=== PATIENT | female | born 1935 | race Caucasian/White ===

== ENCOUNTER 2022-04-27 12:46 | Outpatient (RCR) | payer MEDICARE, BC, SELFPAY ==
[2022-04-27 14:22] LABS: Lactate Dehydrogenase* 666 U/L (313-618)
[2022-04-27 14:42] LABS: Basophils Percent Auto 0.2 % (0.0-3.0); Eosinophils Percent Auto 0.4 % (0.0-7.0); Hematocrit 33.1 % (33.0-51.0); Hemoglobin* 11.3 gm/dL (12.0-16.0); Immature Granulocytes Abs Auto 0.01 K/uL (0.00-0.30); Lymphocytes Percent Auto 68.9 % (20-44); Mean Corpuscular HGB Conc 34 gm/dL (32-36); Mean Corpuscular Hemoglobin 34 pg (26-34); Mean Corpuscular Volume 99 fL (80-100); Monocytes Percent Auto 17.3 % (0.0-11.0); Neutrophils Percent Auto 13.1 % (42.0-72.0); Platelet Count* 182 K/uL (140-440); RDW Coefficient of Variation % 13.1 % (11.5-15.5); Red Blood Count 3.33 m/uL (4.00-5.20); White Blood Count* 11.03 K/uL (4.50-11.00)
[2022-04-27 14:43] LABS: Albumin* 4.3 g/dL (3.3-5.0); Chloride* 91 mmol/L (96-114)
[2022-04-27 14:44] LABS: Potassium* 4.4 mmol/L (3.6-5.1)
[2022-04-27 14:46] LABS: Alanine Aminotransferase* 24 U/L (4-35); Alkaline Phosphatase* 97 U/L (40-150); Aspartate Amino Transferase* 70 U/L (12-35); Bilirubin Total* 0.4 mg/dL (0.1-1.5); Blood Urea Nitrogen* 18 mg/dL (7-30); Carbon Dioxide* 27 mmol/L (20-32); Creatinine* 0.9 mg/dL (0.5-1.5); Estimated Glomerular Filt Rate 62 ml/min; Glucose* 103 mg/dL (60-115); Sodium* 125 mmol/L (135-149); Total Protein* 7.3 g/dL (6.0-8.3)
[2022-04-27 14:47] LABS: Calcium* 9.1 mg/dL (8.4-10.6)
[2022-04-27 15:01] LABS: Slide Review Reflex Yes
[2022-04-27 15:02] LABS: Slide Review Acceptable Review (Acceptable)
[2022-04-27 15:27] LABS: Hepatitis B Surface Antigen* Negative (Negative)
--- NOTE | 2022-04-28 09:06 | URNOTE ---
Request received for prior authorization of Rituximab [id number]. Patient carries Medicare as primary insurance. Per CMS.gov LCD A35998 no prior authorization is required for Rituximab. Services are based on medical necessity and follows Medicare guidelines.
[2022-04-28 17:03] LABS: Hepatitis B Core Antibodies Negative (Negative)
[2022-05-01 13:28] LABS: Hepatitis B Surface Antibody* Negative (Negative)
== END 2022-04-30 23:59 | disposition home or self-care (01) ==
LOC: CCIC 12:46
PROVIDERS: PCP Internal Medicine; Visit Provider Internal Medicine Hematology & Oncology
DX: C83.08 Small cell B-cell lymphoma, lymph nodes of multiple sites (principal)
CPT/HCPCS: 36415; 80053; 83615; 85025; 86704; 86706; 87340; 99202; 99204

== ENCOUNTER 2022-10-26 12:45 | Outpatient (RCR) | payer MEDICARE, BC, SELFPAY ==
[2022-05-02 08:34] VITALS: BP 159/72; PULSE 69; RESP 16; TEMP 36.4; O2SAT 95
[2022-05-02] MEDS: ACETAMINOPHEN 325 MG TABLET 650 MG PO ×2 (09:28→12:32)
[2022-05-02] MEDS: diphenhydrAMINE 25 MG in 0.9 % SODIUM CHLORIDE 100 ml 100 ML 402 MG IVPB (09:50)
[2022-05-02 09:54] LABS: Chloride* 97 mmol/L (96-114); Potassium* 4.7 mmol/L (3.6-5.1); Sodium* 127 mmol/L (135-149)
[2022-05-02 09:56] LABS: Creatinine* 0.8 mg/dL (0.5-1.5); Estimated Glomerular Filt Rate 72 ml/min
[2022-05-02 09:57] LABS: Blood Urea Nitrogen* 20 mg/dL (7-30); Calcium* 9.1 mg/dL (8.4-10.6); Carbon Dioxide* 24 mmol/L (20-32); Glucose* 95 mg/dL (60-115)
[2022-05-02] MEDS: diphenhydrAMINE 50 MG/ML inj 25 MG IVP (12:33)
--- NOTE | 2022-05-02 14:47 | ONC.NURNOTE ---
See Mar/titration on infusional reaction. Rituxan stopped due to hypertension, chills, and low back pain. Pt received additional benadryl and tylenol per order from Nat Castellanos APRN and rituxan resumed at 75cc/hr 20 minutes after pre meds. Labs on 04/27- Sodium 125. BMP ordered by Nat Castellanos APRN, sodium level 127. Lab results faxed to Dr. Barreto as an FYI and message left to see if pt's BP meds could be the cause of her low sodium.
[2022-05-02] MEDS: HYDROCORTISONE SOD SUCCINATE 50 MG/ML inj 100 MG IVP (15:15)
--- NOTE | 2022-05-02 15:27 | ONC.NURNOTE ---
Tootie reviewed questions addressed consents signed reviewed contents of the new chemo treatment binder after hours management discussed, including management of fever over 100.5
--- NOTE | 2022-05-02 15:53 | ONC.NURNOTE ---
Addendum entered by Zaida Vargas RN 05/02/22 17:09: Pt discharged at 1700 alert and ambulatory with daughter. Pt to hold Metoprolol this evening. RN to call pt tomorrow to check in. Original Note: At 1512, pt turned light on stating she felt hot, clammy, slightly nauseated. Rituxan stopped, NS started, BP 70's systollic. Nat Watson APRN at bedside. Pt reclined. NS bolus started and Solucortef 100mg IV given per order from Nat Watson APRN. BP improving, see titration/VS. at 1527, BP 112/49 HR 63. RN at bedside with VS frequently. RN called pt's daughter to come sit with pt at her request.
[2022-05-02] MEDS: FAMOTIDINE 10 MG/ML inj 20 MG IVP (16:35)
--- NOTE | 2022-05-03 15:13 | ONC.NURNOTE ---
Post Rituxan follow up call Noelle phoned in today to report that she has been feeling well since receiving her rituxan yesterday she left here and took a short nap at home then slept well last night with no fevers continues to be Afeb today reports feeling perky and was heading to lunch this afternoon encouraged to call with any changes or concerns
[2022-05-11 08:08] VITALS: BP 160/70; PULSE 82; RESP 16; TEMP 36.6; O2SAT 98
[2022-05-11 08:43] LABS: Basophils Absolute Auto 0.01 K/uL (0.00-0.30); Basophils Percent Auto 0.2 % (0.0-3.0); Eosinophils Absolute Auto 0.05 K/uL (0.00-0.50); Eosinophils Percent Auto 0.8 % (0.0-7.0); Hematocrit 32.5 % (33.0-51.0); Hemoglobin* 11.2 gm/dL (12.0-16.0); Lymphocytes Percent Auto 56.2 % (20-44); Mean Corpuscular HGB Conc 35 gm/dL (32-36); Mean Corpuscular Hemoglobin 34 pg (26-34); Mean Corpuscular Volume 99 fL (80-100); Monocytes Percent Auto 19.4 % (0.0-11.0); Neutrophils Percent Auto 23.4 % (42.0-72.0); Platelet Count* 180 K/uL (140-440); RDW Coefficient of Variation % 13.4 % (11.5-15.5); White Blood Count* 5.93 K/uL (4.50-11.00)
[2022-05-11 08:45] LABS: Albumin* 4.4 g/dL (3.3-5.0); Chloride* 92 mmol/L (96-114)
[2022-05-11 08:46] LABS: Potassium* 4.4 mmol/L (3.6-5.1)
[2022-05-11 08:48] LABS: Bilirubin Total* 0.5 mg/dL (0.1-1.5); Creatinine* 0.8 mg/dL (0.5-1.5); Estimated Glomerular Filt Rate 72 ml/min; Sodium* 125 mmol/L (135-149)
[2022-05-11 08:49] LABS: Alanine Aminotransferase* 28 U/L (4-35); Alkaline Phosphatase* 101 U/L (40-150); Aspartate Amino Transferase* 28 U/L (12-35); Blood Urea Nitrogen* 21 mg/dL (7-30); Carbon Dioxide* 23 mmol/L (20-32); Glucose* 142 mg/dL (60-115); Total Protein* 7.1 g/dL (6.0-8.3)
[2022-05-11 09:04] LABS: Slide Review Reflex No
[2022-05-11] MEDS: ACETAMINOPHEN 325 MG TABLET 650 MG PO (09:36)
[2022-05-11 09:39] LABS: Lactate Dehydrogenase* 785 U/L (313-618)
[2022-05-11] MEDS: METHYLPREDNISOLONE SOD SUCC 40 MG/ML IVP (09:51)
[2022-05-11] MEDS: FAMOTIDINE 10 MG/ML inj 20 MG IVP (09:51)
[2022-05-11] MEDS: diphenhydrAMINE 25 MG in 0.9 % SODIUM CHLORIDE 100 ml 100 ML 402 MG IVPB (10:07)
[2022-05-18 08:24] LABS: Basophils Percent Auto 0.3 % (0.0-3.0); Eosinophils Percent Auto 1.3 % (0.0-7.0); Hematocrit 33.6 % (33.0-51.0); Hemoglobin* 11.6 gm/dL (12.0-16.0); Lymphocytes Percent Auto 47.9 % (20-44); Mean Corpuscular HGB Conc 35 gm/dL (32-36); Mean Corpuscular Hemoglobin 34 pg (26-34); Mean Corpuscular Volume 98 fL (80-100); Monocytes Percent Auto 17.5 % (0.0-11.0); Platelet Count* 189 K/uL (140-440); RDW Coefficient of Variation % 13.4 % (11.5-15.5); Red Blood Count 3.44 m/uL (4.00-5.20); White Blood Count* 3.15 K/uL (4.50-11.00)
[2022-05-18 08:26] LABS: Slide Review Reflex No
[2022-05-18 08:34] VITALS: BP 144/73; PULSE 82; RESP 16; TEMP 37.1; O2SAT 96
[2022-05-18 08:41] LABS: Chloride* 91 mmol/L (96-114)
[2022-05-18 08:42] LABS: Albumin* 4.3 g/dL (3.3-5.0); Potassium* 4.1 mmol/L (3.6-5.1); Sodium* 125 mmol/L (135-149)
[2022-05-18 08:44] LABS: Aspartate Amino Transferase* 36 U/L (12-35); Bilirubin Total* 0.5 mg/dL (0.1-1.5); Carbon Dioxide* 23 mmol/L (20-32); Creatinine* 0.9 mg/dL (0.5-1.5); Estimated Glomerular Filt Rate 62 ml/min; Total Protein* 7.2 g/dL (6.0-8.3)
[2022-05-18 08:45] LABS: Alanine Aminotransferase* 33 U/L (4-35); Alkaline Phosphatase* 110 U/L (40-150); Blood Urea Nitrogen* 21 mg/dL (7-30); Glucose* 176 mg/dL (60-115)
[2022-05-18] MEDS: ACETAMINOPHEN 325 MG TABLET 650 MG PO (09:07)
[2022-05-18] MEDS: METHYLPREDNISOLONE SOD SUCC 40 MG/ML 20 MG IVP (09:18)
[2022-05-18] MEDS: FAMOTIDINE 10 MG/ML inj 20 MG IVP (09:19)
[2022-05-18] MEDS: diphenhydrAMINE 25 MG in 0.9 % SODIUM CHLORIDE 100 ml 100 ML 402 MG IVPB (09:28)
[2022-05-22 13:04] VITALS: BP 148/79; PULSE 88; RESP 16; TEMP 36.4; O2SAT 96
[2022-05-25 08:13] VITALS: BP 149/75; PULSE 77; RESP 16; TEMP 36.4; O2SAT 96
[2022-05-25 08:14] LABS: Basophils Percent Auto 0.3 % (0.0-3.0); Hematocrit 33.5 % (33.0-51.0); Hemoglobin* 11.4 gm/dL (12.0-16.0); Immature Granulocytes Abs Auto 0.02 K/uL (0.00-0.30); Lymphocytes Percent Auto 42.8 % (20-44); Mean Corpuscular HGB Conc 34 gm/dL (32-36); Mean Corpuscular Hemoglobin 34 pg (26-34); Mean Corpuscular Volume 99 fL (80-100); Monocytes Percent Auto 10.8 % (0.0-11.0); Neutrophils Percent Auto 43.4 % (42.0-72.0); Platelet Count* 177 K/uL (140-440); RDW Coefficient of Variation % 13.5 % (11.5-15.5); Red Blood Count 3.37 m/uL (4.00-5.20); White Blood Count* 2.97 K/uL (4.50-11.00)
[2022-05-25 08:23] LABS: Slide Review Reflex No
[2022-05-25 08:25] LABS: Albumin* 4.3 g/dL (3.3-5.0); Chloride* 93 mmol/L (96-114)
[2022-05-25 08:26] LABS: Potassium* 4.5 mmol/L (3.6-5.1); Sodium* 127 mmol/L (135-149)
[2022-05-25 08:28] LABS: Alkaline Phosphatase* 108 U/L (40-150); Aspartate Amino Transferase* 29 U/L (12-35); Bilirubin Total* 0.6 mg/dL (0.1-1.5); Blood Urea Nitrogen* 19 mg/dL (7-30); Carbon Dioxide* 24 mmol/L (20-32); Creatinine* 0.9 mg/dL (0.5-1.5); Estimated Glomerular Filt Rate 62 ml/min; Glucose* 137 mg/dL (60-115); Total Protein* 7.1 g/dL (6.0-8.3)
[2022-05-25 08:29] LABS: Alanine Aminotransferase* 25 U/L (4-35); Calcium* 9.2 mg/dL (8.4-10.6)
[2022-05-25] MEDS: ACETAMINOPHEN 325 MG TABLET 650 MG PO (08:57)
[2022-05-25] MEDS: diphenhydrAMINE 25 MG, FAMOTIDINE 20 MG in 0.9 % SODIUM CHLORIDE 100 ml 100 ML 410 MG IVPB (09:19)
[2022-05-25] MEDS: METHYLPREDNISOLONE SOD SUCC 40 MG/ML 10 MG IVP (09:37)
[2022-06-01 08:38] LABS: Basophils Percent Auto 0.4 % (0.0-3.0); Eosinophils Percent Auto 1.6 % (0.0-7.0); Hematocrit 33.7 % (33.0-51.0); Hemoglobin* 11.5 gm/dL (12.0-16.0); Immature Granulocytes Abs Auto 0.01 K/uL (0.00-0.30); Lymphocytes Percent Auto 47.2 % (20-44); Mean Corpuscular HGB Conc 34 gm/dL (32-36); Mean Corpuscular Hemoglobin 34 pg (26-34); Mean Corpuscular Volume 99 fL (80-100); Monocytes Percent Auto 4.4 % (0.0-11.0); Platelet Count* 184 K/uL (140-440); RDW Coefficient of Variation % 13.2 % (11.5-15.5); Red Blood Count 3.41 m/uL (4.00-5.20); White Blood Count* 2.52 K/uL (4.50-11.00)
[2022-06-01 08:46] LABS: Albumin* 4.5 g/dL (3.3-5.0); Chloride* 91 mmol/L (96-114); Sodium* 125 mmol/L (135-149)
[2022-06-01 08:47] LABS: Potassium* 4.7 mmol/L (3.6-5.1); Slide Review Reflex No
[2022-06-01 08:49] LABS: Alanine Aminotransferase* 24 U/L (4-35); Alkaline Phosphatase* 107 U/L (40-150); Aspartate Amino Transferase* 31 U/L (12-35); Bilirubin Total* 0.6 mg/dL (0.1-1.5); Blood Urea Nitrogen* 19 mg/dL (7-30); Carbon Dioxide* 25 mmol/L (20-32); Creatinine* 0.8 mg/dL (0.5-1.5); Estimated Glomerular Filt Rate 72 ml/min; Glucose* 99 mg/dL (60-115); Lactate Dehydrogenase* 528 U/L (313-618); Total Protein* 7.3 g/dL (6.0-8.3)
[2022-06-01 08:50] LABS: Calcium* 9.3 mg/dL (8.4-10.6)
[2022-07-14 09:18] LABS: Basophils Absolute Auto 0.01 K/uL (0.00-0.30); Basophils Percent Auto 0.1 % (0.0-3.0); Eosinophils Absolute Auto 0.08 K/uL (0.00-0.50); Eosinophils Percent Auto 1.1 % (0.0-7.0); Hematocrit 35.6 % (33.0-51.0); Hemoglobin* 12.1 gm/dL (12.0-16.0); Lymphocytes Percent Auto 51.6 % (20-44); Mean Corpuscular HGB Conc 34 gm/dL (32-36); Mean Corpuscular Hemoglobin 34 pg (26-34); Mean Corpuscular Volume 101 fL (80-100); Monocytes Percent Auto 25.5 % (0.0-11.0); Neutrophils Percent Auto 21.7 % (42.0-72.0); Platelet Count* 192 K/uL (140-440); Red Blood Count 3.54 m/uL (4.00-5.20); White Blood Count* 6.99 K/uL (4.50-11.00)
[2022-07-14 09:25] LABS: Slide Review Reflex Yes
[2022-07-14 10:10] LABS: Slide Review Acceptable Review (Acceptable)
[2022-09-04 10:26] LABS: Albumin* 4.8 g/dL (3.3-5.0)
[2022-09-04 10:27] LABS: Chloride* 96 mmol/L (96-114); Potassium* 4.8 mmol/L (3.6-5.1); Sodium* 128 mmol/L (135-149)
[2022-09-04 10:29] LABS: Bilirubin Total* 0.7 mg/dL (0.1-1.5); Carbon Dioxide* 24 mmol/L (20-32)
[2022-09-04 10:30] LABS: Alanine Aminotransferase* 27 U/L (4-35); Alkaline Phosphatase* 94 U/L (40-150); Aspartate Amino Transferase* 33 U/L (12-35); Blood Urea Nitrogen* 24 mg/dL (7-30); Calcium* 9.7 mg/dL (8.4-10.6); Glucose* 93 mg/dL (60-115); Total Protein* 7.5 g/dL (6.0-8.3)
[2022-09-04 10:31] LABS: Creatinine* 0.9 mg/dL (0.5-1.5); Estimated Glomerular Filt Rate 62 ml/min
[2022-09-04 10:42] LABS: Basophils Absolute Auto 0.02 K/uL (0.00-0.30); Basophils Percent Auto 0.3 % (0.0-3.0); Eosinophils Absolute Auto 0.03 K/uL (0.00-0.50); Eosinophils Percent Auto 0.5 % (0.0-7.0); Hematocrit 34.9 % (33.0-51.0); Lymphocytes Percent Auto 52.2 % (20-44); Mean Corpuscular HGB Conc 34 gm/dL (32-36); Mean Corpuscular Hemoglobin 33 pg (26-34); Mean Corpuscular Volume 97 fL (80-100); Platelet Count* 190 K/uL (140-440); RDW Coefficient of Variation % 12.9 % (11.5-15.5)
[2022-09-04 10:53] LABS: Slide Review Reflex No
[2022-09-04 12:35] LABS: Lactate Dehydrogenase* 298 U/L (120-246)
== END 2022-10-29 23:59 | disposition home or self-care (01) ==
LOC: CCIC 12:45
PROVIDERS: Clinical Nurse Specialist; Internal Medicine Hematology & Oncology; PCP Internal Medicine; Visit Provider Nurse Practitioner Family
DX: C83.08 Small cell B-cell lymphoma, lymph nodes of multiple sites (principal)
CPT/HCPCS: 36415; 80048; 80053; 83615; 85025; 96361; 96372; 96376; 96413; 96415; 99211; 99212; 99214; 99215; A9270; J1200; J1720; J2920; J7030; J7050; J7120; J9312; S0028

== ENCOUNTER 2022-11-01 00:34 | Outpatient (CLI) | payer MEDICARE, BC, SELFPAY | END 2022-11-01 00:35 | disposition home or self-care (01) | LOC: AMB 23:51 | PROVIDERS: PCP Internal Medicine; Visit Provider Family Medicine | DX: R53.1 Weakness (principal) | CPT/HCPCS: A0425; A0427 ==

== ENCOUNTER 2022-11-01 00:58 | Inpatient (IN) | payer MEDICARE, BC, SELFPAY ==
[2022-11-01] VITALS (16 sets, daily range): BP systolic 141–180; BP diastolic 67–101; PULSE 49–79; RESP 18–20; TEMP 36.2–37; O2SAT 91–98; BMI 22.6; BMI 24.9
--- NOTE | 2022-11-01 01:38 | CRLHL7_ITS ---
For Patients: As a result of the Century Cures Act, medical imaging exams and procedure reports are released immediately into your electronic medical record. You may view this report before your referring provider. If you have questions, please contact your health care provider. INDICATION: Cough and weakness. TECHNIQUE: Chest 1 views. COMPARISON: None. FINDINGS: Cardiovasculature and mediastinum: Heart size and vasculature are normal in caliber and appearance. Lungs and pleural spaces: Lungs are clear. No sign of infiltrate or mass. No sign of pleural effusion. No pneumothorax. Bones and soft tissues: No significant findings. IMPRESSION: No acute or significant findings. Dictated by Dakota Collazo MD @ 11/01/2022 2:15:50 AM (Electronically Signed)
--- NOTE | 2022-11-01 01:45 | ED.GENADULT ---
HPI - General Adult General Chief complaint: Weakness Stated complaint: Weakness Time Seen by Provider: 11/01/22 01:00 Source: patient and EMS History of Present Illness HPI narrative: Patient presents with generalized weakness, worsening over the last 5 days. She reports that her was hospitalized with COVID on Sunday which was 5 days ago. He initially started with weakness symptoms. They live in the independent living area of the [facility]. They do not receive any services. She has been on quarantine for the last 5 days. She has been on Paxlovid, prescribed by her primary care physician. She called EMS tonight because she was afraid she would fall. There was no dizziness, no chest pain, no stumbling. She does have a history of non-Hodgkin's lymphoma and chronic hyponatremia. She reports that she has been eating and drinking normally, had 1 loose stool earlier today but no diarrhea. There is no fever, no dysuria. She has had a mild cough for the last 5 days. Denies nausea. No shortness of breath, no chest pain, no palpitations. She does not give any specific symptoms are reasons as to why she called EMS. She denies any focal neurological changes. She has continued to take her medications without difficulty per her report. Past medical history notable for non-Hodgkin's lymphoma, chronic hyponatremia. Looks like her baseline sodium is around 128. Of note, it looks like she does continue to take hydrochlorothiazide. She has had a remote hysterectomy and foot fracture surgery but no recent procedures. Medications are reviewed and updated, noted in EMR. Allergies none known. Socially she is nonsmoker, , is currently hospitalized. ROS is notable for the nonspecific generalized multi system complaints as above, otherwise denies times 12 systems. Related Data Home Medications Medication Instructions Recorded Confirmed atorvastatin 10 mg tablet 10 mg PO QPM 04/27/22 10/26/22 hydrochlorothiazide 25 mg tablet 25 mg PO QAM 04/27/22 10/26/22 metoprolol succinate 25 mg 25 mg PO QDAY 04/27/22 10/26/22 tablet,extended release 24 hr multivitamin 1 tab PO QAM 04/27/22 10/26/22 vit C 250 mg-vit E 200 unit-zinc See Rx Instructions PO DAILY 04/27/22 10/26/22 ox 12.5 [id number] capsule (ICaps AREDS2) acetaminophen 500 mg tablet See Rx Instructions PO Q6H PRN 09/04/22 10/26/22 (Tylenol Extra Strength) Previous Rx's Medication Instructions Recorded valsartan 160 mg tablet 160 mg PO QDAY #90 tabs 09/28/22 nirmatrelvir 300 mg (150 mg 3 ea PO QAM AND QPM #30 tabs 10/26/22 x2)-ritonavir 100 mg tablet,dose pack(EUA) (Paxlovid) Allergies Allergy/AdvReac Type Severity Reaction Status Date / Time No Known Drug Allergies Allergy Verified 10/26/22 15:44 PFSH PFSH Surgical History History of ankle surgery History of cataract surgery History of hysterectomy History of tonsillectomy Hx of squamous cell carcinoma of skin Social History Smoking Status: Never smoker Exam Const: Vital Signs, click to edit/add: Vital Signs - 24 hr 11/01/22 01:02 11/01/22 02:02 11/01/22 02:13 Temperature 97.2 F L Pulse Rate 49 L Pulse Rate [Pulse Oximeter] 77 Respiratory Rate 20 Blood Pressure 146/78 H Blood Pressure [Le ft Upper Arm] 180/101 H Pulse Oximetry 92 Oxygen Delivery Me thod Room Air 11/01/22 02:30 Temperature Pulse Rate 54 L Pulse Rate [Pulse Oximeter] Respiratory Rate Blood Pressure Blood Pressure [Le ft Upper Arm] Pulse Oximetry 91 Oxygen Delivery Me thod Common normals: no apparent distress and alert General appearance: cooperative, comfortable and well kempt Orientation/consciousness: Yes oriented to person, Yes oriented to place and Yes oriented to time Other: Mild confusion with story telling and specific timeline details but can answer past medical history, but not medications reliably. HENMT: Common normals: normocephalic and head/scalp atraumatic Head and scalp: normocephalic and atraumatic Face and sinus: normal facial exam Mouth: oral and palatal mucosa normal Eye: Common normals: PERRL, EOMs intact bilaterally and conjunctivae normal General eye: normal appearance of both eyes Conjunctiva: conjunctiva(e) normal Pupil: PERRL Neck & C-Spine: Common normals: full ROM, no lymphadenopathy and no JVD Resp: Common normals: normal respiratory effort and no use of accessory muscles Effort & inspection: able to speak in complete sentences Other: Faint bibasilar crackles, symmetric Cardio: Common normals: no JVD, regular rate, regular rhythm and peripheral pulses 2+ throughout Rate: regular rate Rhythm: regular rhythm Peripheral pulses: pulses 2+ throughout Other: 3+ systolic ejection murmur, sounds aortic and chronic GI: Common normals: Normal to inspection, nondistended, normoactive bowel sounds present, soft to palpation, non-tender, no hepatosplenomegaly and no masses Palpation: soft and no hepatosplenomegaly Extremity: Common normals: normal capillary refill and no pedal edema Neuro: Sensorium/orientation: alert, oriented to person, oriented to place and oriented to time Speech: speech normal Motor exam: strength 5/5 throughout and no movement abnormalities noted Psych: Common normals: speech normal Appearance: well kempt Attitude: engaged Speech: normal speech Mood and affect: euthymic mood Skin: Common normals: no rashes or lesions noted General skin exam: no rashes or lesions noted Course Vital Signs Vital signs: Initial Vital Signs Temperature 97.2 F L 11/01/22 01:02 Temperature Source Temporal Artery Scan 11/01/22 01:02 Pulse Rate 77 11/01/22 01:02 Pulse Rhythm 11/01/22 01:02 Pulse Strength 3+ Normal 11/01/22 01:02 Respiratory Rate 20 11/01/22 01:02 Blood Pressure 180/101 H 11/01/22 01:02 Blood Pressure Mean 127 11/01/22 01:02 Blood Pressure Position Semi-Fowlers 11/01/22 01:02 Oxygen Delivery Method 11/01/22 01:02 Vital Signs Temperature 97.2 F L 11/01/22 01:02 Pulse Rate 77 11/01/22 01:02 Respiratory Rate 20 11/01/22 01:02 Blood Pressure 180/101 H 11/01/22 01:02 Oxygen Delivery Method 11/01/22 01:02 Temperature 97.2 F L 11/01/22 01:02 Pulse Rate 54 L 11/01/22 02:30 Respiratory Rate 20 11/01/22 01:02 Blood Pressure 146/78 H 11/01/22 02:02 Pulse Oximetry 91 02/01/23 02:30 Oxygen Delivery Method 11/01/22 01:02 Medical Decision Making MDM Narrative Medical decision making narrative: White differential diagnosis, likely COVID, could be medication side effect. Could be worsening hyponatremia compared to her baseline, other acute illnesses. Unfortunately at her age, some degree of cognitive impairment would be expected. I have not care for her previously to know her baseline. I am certainly not detecting any focal weakness or signs of stroke. I do think the stress of her being hospitalized without her is likely contributing. Chest x-ray, COVID swab, flu swab, basic blood work, cardiac workup an EKG recommended. Awaiting studies. No interventions in the interim. Update: Severe hyponatremia noted. Will begin normal saline 500 mL IV x1 and admit to hospital for management of hyponatremia. Stopping thiazide would be paramount. I do suspect that the new anti COVID medication is likely contributing as well as poor oral intake and stress with her in the hospital. Awaiting call back from hospitalist team Update: Hospitalist has accepted patient for admission. Will transfer to [facility]. Lab Data Lab results reviewed: Yes I reviewed the patient's lab results Lab results narrative: Most notable severe hyponatremia Labs: Lab Results 11/01/22 11/01/22 11/01/22 Range/Units 01:35 01:35 01:55 WBC (4.50-11.00) K/uL RBC (4.00-5.20) m/uL Hgb (12.0-16.0) gm/dL Hct (33.0-51.0) % MCV (80-100) fL MCH (26-34) pg MCHC (32-36) gm/dL RDW Coeff of Ebonie (11.5-15.5) % Plt Count (140-440) K/uL Neut % (Auto) (42.0-72.0) % Lymph % (Auto) (20-44) % Levy % (Auto) (0.0-11.0) % Eos % (Auto) (0.0-7.0) % Baso % (Auto) (0.0-3.0) % Neut # (Auto) (1.7-7.0) K/uL Lymph # (Auto) (0.90-2.90) K/uL Levy # (Auto) (0.00-0.90) K/UL Eos # (Auto) (0.00-0.50) K/uL Baso # (Auto) (0.00-0.30) K/uL Sodium (135-149) mmol/L Potassium (3.6-5.1) mmol/L Chloride (96-114) mmol/L Carbon Dioxide (20-32) mmol/L BUN (7-30) mg/dL Creatinine (0.5-1.5) mg/dL Estimated Creat Clear Estimated GFR ml/min Glucose (60-115) mg/dL Lactate Calcium (8.4-10.6) mg/dL Magnesium (1.5-2.6) mg/dL Total Bilirubin (0.1-1.5) mg/dL AST (12-35) U/L ALT (4-35) U/L Alkaline Phosphatase (40-150) U/L Troponin I (0.01-0.04) ng/mL C-Reactive Protein (0.5-1.0) mg/dL NT-Pro-B Natriuret Pep pg/mL Total Protein (6.0-8.3) g/dL Albumin (3.3-5.0) g/dL Lipase (23-300) U/L Procalcitonin (<0.50) ng/mL Urine Color Yellow (Yellow) Urine Appearance Cloudy A (Clear) Urine pH 7.0 (5.0-8.5) Ur Specific [place] 1.015 (1.000-1.030) Urine Protein Negative (Negative) Urine Glucose (UA) Negative (Negative) Urine Ketones Negative (Negative) Urine Blood 1+ A (Negative) Urine Nitrite Positive A (Negative) Urine Bilirubin Negative (Negative) Urine Urobilinogen 0.2 (0.2-1.0) Ur Leukocyte Esterase Negative (Negative) Urine RBC 0-2 (0-2) Urine WBC 2-5 (0-5) Ur Squamous Epith Cells Few (None-Few) Urine Bacteria Many A (None) SARS-CoV-2 (PCR) POSITIVE SARS-CoV-2 A (Negative) Influenza Type A (PCR) Negative PCR FLU A (Negative) Influenza Type B (PCR) Negative PCR FLU B (Negative) RSV (PCR) Negative PCR RSV (Negative) POC Troponin I 0.01 (0.01-0.04) ng/ml 11/01/22 11/01/22 11/01/22 Range/Units 02:00 02:00 02:00 WBC 11.10 H (4.50-11.00) K/uL RBC 3.26 L (4.00-5.20) m/uL Hgb 11.1 L (12.0-16.0) gm/dL Hct 30.5 L (33.0-51.0) % MCV 94 (80-100) fL MCH 34 (26-34) pg MCHC 36 (32-36) gm/dL RDW Coeff of Ebnoie 13.0 (11.5-15.5) % Plt Count 182 (140-440) K/uL Neut % (Auto) 18.5 L (42.0-72.0) % Lymph % (Auto) 65.7 H (20-44) % Levy % (Auto) 14.9 H (0.0-11.0) % Eos % (Auto) 0.5 (0.0-7.0) % Baso % (Auto) 0.3 (0.0-3.0) % Neut # (Auto) 2.10 (1.7-7.0) K/uL Lymph # (Auto) 7.30 H (0.90-2.90) K/uL Levy # (Auto) 1.70 H (0.00-0.90) K/UL Eos # (Auto) 0.10 (0.00-0.50) K/uL Baso # (Auto) 0.00 (0.00-0.30) K/uL Sodium 112 L* (135-149) mmol/L Potassium 4.4 (3.6-5.1) mmol/L Chloride 83 L (96-114) mmol/L Carbon Dioxide 23 (20-32) mmol/L BUN 16 (7-30) mg/dL Creatinine 0.6 (0.5-1.5) mg/dL Estimated Creat Clear 37.10 Estimated GFR 87 ml/min Glucose 112 (60-115) mg/dL Lactate Cancelled Calcium 8.4 (8.4-10.6) mg/dL Magnesium (1.5-2.6) mg/dL Total Bilirubin 0.7 (0.1-1.5) mg/dL AST 38 H (12-35) U/L ALT 32 (4-35) U/L Alkaline Phosphatase 116 (40-150) U/L Troponin I 0.01 (0.01-0.04) ng/mL C-Reactive Protein 0.7 (0.5-1.0) mg/dL NT-Pro-B Natriuret Pep 3450 pg/mL Total Protein 7.1 (6.0-8.3) g/dL Albumin 4.2 (3.3-5.0) g/dL Lipase 58 (23-300) U/L Procalcitonin 0.06 (<0.50) ng/mL Urine Color (Yellow) Urine Appearance (Clear) Urine pH (5.0-8.5) Ur Specific [place] (1.000-1.030) Urine Protein (Negative) Urine Glucose (UA) (Negative) Urine Ketones (Negative) Urine Blood (Negative) Urine Nitrite (Negative) Urine Bilirubin (Negative) Urine Urobilinogen (0.2-1.0) Ur Leukocyte Esterase (Negative) Urine RBC (0-2) Urine WBC (0-5) Ur Squamous Epith Cells (None-Few) Urine Bacteria (None) SARS-CoV-2 (PCR) (Negative) Influenza Type A (PCR) (Negative) Influenza Type B (PCR) (Negative) RSV (PCR) (Negative) POC Troponin I (0.01-0.04) ng/ml 11/01/22 Range/Units 02:00 WBC (4.50-11.00) K/uL RBC (4.00-5.20) m/uL Hgb (12.0-16.0) gm/dL Hct (33.0-51.0) % MCV (80-100) fL MCH (26-34) pg MCHC (32-36) gm/dL RDW Coeff of Ebonie (11.5-15.5) % Plt Count (140-440) K/uL Neut % (Auto) (42.0-72.0) % Lymph % (Auto) (20-44) % Levy % (Auto) (0.0-11.0) % Eos % (Auto) (0.0-7.0) % Baso % (Auto) (0.0-3.0) % Neut # (Auto) (1.7-7.0) K/uL Lymph # (Auto) (0.90-2.90) K/uL Levy # (Auto) (0.00-0.90) K/UL Eos # (Auto) (0.00-0.50) K/uL Baso # (Auto) (0.00-0.30) K/uL Sodium (135-149) mmol/L Potassium (3.6-5.1) mmol/L Chloride (96-114) mmol/L Carbon Dioxide (20-32) mmol/L BUN (7-30) mg/dL Creatinine (0.5-1.5) mg/dL Estimated Creat Clear Estimated GFR ml/min Glucose (60-115) mg/dL Lactate Calcium (8.4-10.6) mg/dL Magnesium 1.6 (1.5-2.6) mg/dL Total Bilirubin (0.1-1.5) mg/dL AST (12-35) U/L ALT (4-35) U/L Alkaline Phosphatase (40-150) U/L Troponin I (0.01-0.04) ng/mL C-Reactive Protein (0.5-1.0) mg/dL NT-Pro-B Natriuret Pep pg/mL Total Protein (6.0-8.3) g/dL Albumin (3.3-5.0) g/dL Lipase (23-300) U/L Procalcitonin (<0.50) ng/mL Urine Color (Yellow) Urine Appearance (Clear) Urine pH (5.0-8.5) Ur Specific [place] (1.000-1.030) Urine Protein (Negative) Urine Glucose (UA) (Negative) Urine Ketones (Negative) Urine Blood (Negative) Urine Nitrite (Negative) Urine Bilirubin (Negative) Urine Urobilinogen (0.2-1.0) Ur Leukocyte Esterase (Negative) Urine RBC (0-2) Urine WBC (0-5) Ur Squamous Epith Cells (None-Few) Urine Bacteria (None) SARS-CoV-2 (PCR) (Negative) Influenza Type A (PCR) (Negative) Influenza Type B (PCR) (Negative) RSV (PCR) (Negative) POC Troponin I (0.01-0.04) ng/ml ECG Data Attestation: I personally reviewed and interpreted this ECG as follows: Prior ECG tracings: not available for review Interpretation: No prior EKGs noted in system. I was surprised by this especially with her history of hypertension and her report that Dr. Barreto is her primary care provider. Think there may be a registration account issue with this. Nonetheless she is in sinus rhythm on her EKG per my interpretation with several PVCs. No cysts specific ischemic changes but there is a left bundle branch block. Discharge Plan Discharge Clinical Impression: Delirium due to another medical condition, Generalized weakness, Acute hyponatremia Prescriptions: No Action atorvastatin 10 mg tablet 10 mg PO QPM metoprolol succinate 25 mg tablet extended release 24 hr 25 mg PO QDAY multivitamin Tablet 1 tab PO QAM Hold Instructions: taking different supplement ICaps AREDS2 250 mg-200 unit -12.5 mg-1 mg capsule See Rx Instructions PO DAILY Rx Instructions: PO; daily hydrochlorothiazide 25 mg tablet 25 mg PO QAM acetaminophen [Tylenol Extra Strength] 500 mg tablet See Rx Instructions PO Q6H PRN Rx Instructions: 500-1000 orally every 6 hours PRN; Paxlovid (EUA) 300 mg (150 mg x 2)-100 mg tablets,dose pack 3 ea PO QAM AND QPM Qty: 30 0RF valsartan 160 mg tablet 160 mg PO QDAY Qty: 90 3RF Follow Up/Referrals: Gabrielle Barreto MD [Primary Care Provider] -
[2022-11-01 01:48] LABS: Appearance Urine Cloudy (Clear); Bilirubin Urine Negative (Negative); Blood Urine 1+ (Negative); Color Urine Yellow (Yellow); Glucose Urine Negative (Negative); Ketones Urine Negative (Negative); Leukocyte Esterase Urine Negative (Negative); Nitrite Urine Positive (Negative); Protein Urine Negative (Negative); Specific Gravity Urine 1.015 (1.000-1.030); Urobilinogen Urine 0.2 (0.2-1.0)
[2022-11-01 02:05] LABS: Basophils Percent Auto 0.3 % (0.0-3.0); Eosinophils Percent Auto 0.5 % (0.0-7.0); Hematocrit 30.5 % (33.0-51.0); Hemoglobin* 11.1 gm/dL (12.0-16.0); Immature Granulocytes Pct Auto 0.1 %; Lymphocytes Percent Auto 65.7 % (20-44); Mean Corpuscular HGB Conc 36 gm/dL (32-36); Mean Corpuscular Hemoglobin 34 pg (26-34); Mean Corpuscular Volume 94 fL (80-100); Monocytes Percent Auto 14.9 % (0.0-11.0); Neutrophils Percent Auto 18.5 % (42.0-72.0); Platelet Count* 182 K/uL (140-440); Red Blood Count 3.26 m/uL (4.00-5.20)
[2022-11-01 02:06] LABS: Slide Review Reflex No
[2022-11-01 02:15] LABS: Troponin, Point-of-Care* 0.01 ng/ml (0.01-0.04)
[2022-11-01 02:22] LABS: Albumin* 4.2 g/dL (3.3-5.0); Chloride* 83 mmol/L (96-114)
[2022-11-01 02:23] LABS: Potassium* 4.4 mmol/L (3.6-5.1)
[2022-11-01 02:25] LABS: Creatinine* 0.6 mg/dL (0.5-1.5); Estimated Glomerular Filt Rate 87 ml/min; Magnesium* 1.6 mg/dL (1.5-2.6)
[2022-11-01 02:25] LABS: Bacteria Urine Many; RBC Urine 0-2 (0-2); Squamous Epithelial Cell Urine Few (None-Few)
[2022-11-01 02:26] LABS: Alanine Aminotransferase* 32 U/L (4-35); Alkaline Phosphatase* 116 U/L (40-150); Aspartate Amino Transferase* 38 U/L (12-35); Bilirubin Total* 0.7 mg/dL (0.1-1.5); Blood Urea Nitrogen* 16 mg/dL (7-30); Calcium* 8.4 mg/dL (8.4-10.6); Carbon Dioxide* 23 mmol/L (20-32); Glucose* 112 mg/dL (60-115); Lipase* 58 U/L (23-300); Total Protein* 7.1 g/dL (6.0-8.3)
[2022-11-01 02:29] LABS: C Reactive Protein* 0.7 mg/dL (0.5-1.0); Sodium* 112 mmol/L (135-149)
[2022-11-01 02:38] LABS: Troponin I* 0.01 ng/mL (0.01-0.04)
[2022-11-01 02:41] LABS: NT Pro B Type NatriureticPept* 3450 pg/mL
[2022-11-01 02:43] LABS: Procalcitonin* 0.06 ng/mL (<0.50)
[2022-11-01 02:46] LABS: PCR FLU A Negative PCR FLU A (Negative); PCR FLU B Negative PCR FLU B (Negative); PCR RSV Negative PCR RSV (Negative); SARS PCR* POSITIVE SARS-CoV-2 (Negative)
[2022-11-01] MEDS: 0.9 % SODIUM CHLORIDE 500 ML 500 ML IV (03:00)
--- NOTE | 2022-11-01 03:03 | W.PC.EDHO ---
Primary Language: Preferred Language: Orientation Status: x Alert & Oriented [] Slight Confusion [] Known Dx Dementia Transfers By: [x] Assist of 1 [] Assist of 2 [] Lift Active Medications Generic Name Dose Route Start Last Admin Trade Name Ofelia PRN Reason Stop Dose Admin Sodium Chloride 500 mls @ 500 mls/hr 11/01/22 02:37 11/01/22 03:00 0.9 % Sodium Chloride 500 Ml IV 11/01/22 03:36 500 mls/hr .Q1H ONE Administration Description of Symptoms ED Triage Date of Onset of 10/26/22 Symptoms Luis A Coma Scale Luis A coma scale total score 15 Triage Comment ED Triage Comment Pt AOx4, ABCs intact. Pt arrives via EMS from independent living. Pt c/o generalized weakness, cough, and shaking x5 days. Patient and tested COVID+ 10/27/22. Pt states that she was feeling shaky tonight which prompted her to call 911. Oxygen Administration Pulse Oximetry 91 Pulse Oximetry 92 Oxygen Delivery Method Room Air Cardiac Monitoring EKG Method 12 Lead
--- NOTE | 2022-11-01 03:22 | ED.NURSE ---
RN gave verbal report to med surg nurse.
--- NOTE | 2022-11-01 03:24 | ED.NURSE ---
patient to move to room 276
--- NOTE | 2022-11-01 04:09 | P.EN_ITS ---
Chart Event Note Chart Event Note: [facility] Hospitalist Consultation Noelle Hammond 1935 This patient is a 87-year-old female with a past medical history hypertension, hyperlipidemia, small B-cell lymphoma chronic hyponatremia hypoosmolar who presents with generalized weakness. The patient states that her condition has been worsening over the last 5 days where she has felt generally weak and had not been getting around the house. Of note her is currently hospitalized at [facility] with COVID. Patient has been taking Paxlovid. The patient called EMS tonight as she thought she would fall. She denies feeling faint. She denies any chest pain shortness of breath. No chest. No nausea vomiting. No diarrhea. Home Medications: see EMR Pertinent Medical History: hypertension, hyperlipidemia, small B-cell lymphoma chronic hyponatremia hypoosmolar Pertinent Social History: Non-smoker, resides in assisted living with her Exam (performed via interactive video with assistance of bedside nurse): General: alert, cooperative, no acute distress HEENT: oral mucosa pink and moist without erythema Lungs: clear to auscultation bilaterally, although decreased at the lung bases CV: systolic murmur Abd: denies tenderness and does not exhibit signs of pain with palpation done by bedside nurse Ext: no pitting edema noted Skin: no rashes, bruises or lesions appreciated on gross visualization of exposed skin Neuro: alert, oriented x 3. facial muscles grossly intact, moves all extremi ties without any significant focal deficit appreciated by nurse Assessment and Plan: This patient is a 87-year-old female with a past medical history hypertension, hyperlipidemia, small B-cell lymphoma chronic hyponatremia hypoosmolar who presents with generalized weakness. Generalized weakness Acute on chronic hypoosmolar hyponatremia, will check urine electrolytes. Will DC hydrochlorothiazide from hypertension regimen start salt tabs. PT OT DVT prophylaxis Lovenox CODE STATUS DNR/DNI Thank you for including [facility] in the patients care. This service is available for further assistance as requested by your care team by calling [phone].
[2022-11-01] MEDS: 0.9 % SODIUM CHLORIDE 1000 ml 1,000 ML 75 ML IV ×3 (04:54→22:24)
--- NOTE | 2022-11-01 07:02 | PC.NURSE ---
Shift note: Denies lightheadedness and dizziness, alert and oriented, steady gait with SBA, initially dry cough is now getting to be productive, Pt is voiding, passing gas, no c/o nausea.
[2022-11-01 08:10] LABS: Chloride* 84 mmol/L (96-114); Potassium* 4.5 mmol/L (3.6-5.1)
[2022-11-01 08:13] LABS: Blood Urea Nitrogen* 13 mg/dL (7-30); Calcium* 8.2 mg/dL (8.4-10.6); Carbon Dioxide* 23 mmol/L (20-32); Creatinine* 0.6 mg/dL (0.5-1.5); Estimated Glomerular Filt Rate 87 ml/min; Glucose* 103 mg/dL (60-115)
[2022-11-01] MEDS: SODIUM CHLORIDE 1 GM TABLET PO ×3 (08:13→17:28)
[2022-11-01 08:16] LABS: Sodium* 113 mmol/L (135-149)
--- NOTE | 2022-11-01 11:20 | PC.NURSE ---
TOMMY AT [facility] UPDATED ON PATIENT STATUS AT 1118. CALL BACK NUMBER [phone]. DTR IN TO SEE PATIENT THIS MORNING AROUND 1030 AND UPDATED.
--- NOTE | 2022-11-01 11:25 | PC.NURSE ---
NA THIS AM 112. NA+ TABLETS GIVEN WITH MEALS, PT CHANGED TO 3%NS AT 30ML/HR. LAB RECHECK AT 1400. SBA WITH WALKER AND GB FROM CHAIR TO BR. PT TOLERATED THIS WELL, NO SOB. NO 02 SUPPORT, SATS 92%-95%. GOOD APPETITE. DENIES PAIN. AFEBRILE.
--- NOTE | 2022-11-01 14:49 | PM.IMHP1 ---
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 She diagnosed positive on 10/26. She has completed a 5 day Paclovid RX. She is likely on day 7 of her illness. She noted increasing weakness throughout the evening last night. She called EMS secondary to confusion and weakness. Upon arrival to the ER her vital signs were stable. She was not hypoxic. However her sodium was noted to be on 112. Hospital medicine team was asked to admit for further workup and treatment of her hyponatremia. Reviewed the records shows a chronic hyponatremia. Her sodium has run essentially 125-131 since she moved here in January of 2022. ER COURSE: Workup showed an acute on chronic hyponatremia, 112 with the most recent history being 127. CODE STATUS: DNR/DNI EMERGENCY CONTACT PLAN: DaughterMargie [phone] I've updated the PFSH, medications and allergies in the [facility]se tabs. INVESTIGATIONS: LABS/MICRO/ECG/IMAGING She previously is been leukopenic with treatment of her CLL with Rituxan. Her lowest was in ANC of 1160. Currently she has mounted a white blood cell count of 11.10, 65% lymphocytes. Sodium has climbed to 115 from a low of 112 at admission. Renal function is normal. Blood sugars 145. UA shows positive nitrite, 1+ blood is cloudy. 2-5 white blood cells, many bacteria. - URINE CULTURE PENDING. Chest x-ray was unremarkable. REVIEW OF SYSTEMS: 12-point ROS completed with patient and negative unless otherwise stated in HPI or below. PHYSICAL EXAM: CODE STATUS: DNR DNI CONSTITUTIONAL: Conversive, good historian. A/O. Knows setting and context. Flat affect. VITAL SIGNS: see record. HEENT: Normocephalic, atraumatic. PERRL, EOMI, conjunctivae pink, no scleral icterus. Ears and nose externally normal. Pharynx normal. NECK: No JVD. No carotid bruit, no thyromegaly, significant anterior cervical chain lymphadenopathy, bilateral axilla lymphadenopathy. ABDOMEN: Nontender but slightly distended abdomen noted. CHEST: Clear to auscultation bilaterally HEART: S1 and S2 normal. No harsh murmurs. No edema MUSCULOSKELETAL: No gross joint deformity or swelling. NEURO: Cranial nerves intact. Grossly intact. No asymmetric findings. SKIN: No rashes, petechiae, concerning changes PSYCHIATRIC: Flat affect. ADMIT TO MEDSURG: FLOOR CARE DVT: Lovenox GI: PO intake Time spent: 70 minutes examining patient, conferring with family and patient, care staff, developing care plan [facility] Medical History (Updated 11/01/22 @ 15:18 by Yamilet Luna MD) Chronic hyponatremia CLL (chronic lymphocytic leukemia) Essential hypertension Hyperlipidemia Surgical History History of ankle surgery History of cataract surgery History of hysterectomy History of tonsillectomy Hx of squamous cell carcinoma of skin Social History (Updated 11/01/22 @ 14:49 by Yamilet Luna MD) Narrative: to Rajan. Has 3 adult children, 1 with lifelong CP and lives in a longterm. 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 nonsmoker. non drinker. lives with , Rajan, at [facility] independent apartments. Smoking Status: Never smoker Do you use any of these nicotine containing products: None Second hand tobacco smoke exposure: No How often do you have a drink containing alcohol: never AUDIT-C Alcohol total score: 0 Non-prescribed substance use: denies use Caffeine: Yes (2 cups in the morning) service: No Meds Home Medications and Allergies Home Medications Medication Instructions Recorded Confirmed Type hydrochlorothiazide 25 mg tablet 25 mg PO QAM 04/27/22 11/01/22 History metoprolol succinate 25 mg 25 mg PO DAILY 04/27/22 11/01/22 History tablet,extended release 24 hr vit C 250 mg-vit E 200 unit-zinc See Rx Instructions PO DAILY 04/27/22 11/01/22 History ox 12.5 [id number] capsule (ICaps AREDS2) acetaminophen 500 mg tablet See Rx Instructions PO Q6H PRN 09/04/22 11/01/22 History (Tylenol Extra Strength) atorvastatin 20 mg tablet 20 mg PO HS 11/01/22 11/01/22 History valsartan 160 mg tablet 160 mg PO DAILY 11/01/22 11/01/22 History Allergies Allergy/AdvReac Type Severity Reaction Status Date / Time No Known Drug Allergies Allergy Verified 11/01/22 14:20 Exam Const: Vital Signs, click to edit/add: Vital Signs - 24 hr 11/01/22 01:02 11/01/22 02:02 11/01/22 02:13 Temperature 97.2 F L Pulse Rate 49 L Pulse Rate [Pulse Oximeter] 77 Respiratory Rate 20 Blood Pressure 146/78 H Blood Pressure [Le ft Radial Artery] Blood Pressure [Le ft Upper Arm] 180/101 H Pulse Oximetry 92 Oxygen Delivery Hi thod Room Air 11/01/22 02:30 11/01/22 02:32 11/01/22 02:45 Temperature Pulse Rate 54 L 72 79 Pulse Rate [Pulse Oximeter] Respiratory Rate Blood Pressure 145/92 H Blood Pressure [Le ft Radial Artery] Blood Pressure [Le ft Upper Arm] Pulse Oximetry 91 95 93 Oxygen Delivery Hi thod 11/01/22 03:00 11/01/22 03:02 11/01/22 04:13 Temperature 98.3 F Pulse Rate Pulse Rate [Pulse Oximeter] 54 L Respiratory Rate 20 Blood Pressure 155/96 H Blood Pressure [Le ft Radial Artery] 162/89 H Blood Pressure [Le ft Upper Arm] Pulse Oximetry 92 97 Oxygen Delivery Hi thod Room Air 11/01/22 04:13 11/01/22 07:00 11/01/22 10:17 Temperature Pulse Rate 72 Pulse Rate [Pulse Oximeter] 75 Respiratory Rate 20 Blood Pressure Blood Pressure [Le ft Radial Artery] Blood Pressure [Le ft Upper Arm] Pulse Oximetry 97 [facility] 11/01/22 11:22 11/01/22 07:30 Temperature 98.5 F 98.6 F Pulse Rate Pulse Rate [Pulse Oximeter] 70 67 Respiratory Rate 20 18 Blood Pressure Blood Pressure [Le ft Radial Artery] 144/67 H 141/68 H Blood Pressure [Le ft Upper Arm] Pulse Oximetry 95 92 Oxygen Delivery Hi thod Room Air Room Air Hospitalist - H&P: Result Labs Labs: Short CBC 11/01/22 Range/Units 02:00 WBC 11.10 H (4.50-11.00) K/uL Hgb 11.1 L (12.0-16.0) gm/dL Hct 30.5 L (33.0-51.0) % Plt Count 182 (140-440) K/uL BMP 11/01/22 11/01/22 02:00 07:42 Sodium 112 L* 113 L* Potassium 4.4 4.5 Chloride 83 L 84 L Carbon Dioxide 23 23 BUN 16 13 Creatinine 0.6 0.6 Glucose 112 103 Calcium 8.4 8.2 L Cardiac Enzymes 11/01/22 Range/Units 02:00 Troponin I 0.01 (0.01-0.04) ng/mL Liver Function 11/01/22 Range/Units 02:00 Total Bilirubin 0.7 (0.1-1.5) mg/dL AST 38 H (12-35) U/L ALT 32 (4-35) U/L Alkaline Phosphatase 116 (40-150) U/L Albumin 4.2 (3.3-5.0) g/dL Urine 11/01/22 Range/Units 01:35 Urine Color Yellow (Yellow) Urine Appearance Cloudy A (Clear) Urine pH 7.0 (5.0-8.5) Ur Specific [place] 1.015 (1.000-1.030) Urine Protein Negative (Negative) Urine Glucose (UA) Negative (Negative) Assessment and Plan Assessment and plan (1) Encephalopathy due to COVID-19 virus: Problem comment: Onset of symptoms 10/26. Status post Paclovid 5 day course. Admitted for weakness/encephalopathy and hyponatremia. -I have asked for a pharmacy consult related to use of Remdesivir. Currently we have no further dosing available in our supply, she is status post a 5 day oral antiviral treatment and this likely suffices. Status: Acute (2) Acute hyponatremia: Problem comment: likely related to free water intake, HCTZ, and SIADH related to CLL and/or concurrent covid. 3% saline am of 11/01 - repeat was up to 115, now back on NS 75cc/hr and salt tabs with water restriction recheck sodium at 2100 Status: Acute (3) CLL (chronic lymphocytic leukemia): Problem comment: -my concern is her hyponatremia may be just is likely related to underlying CLL as it is to her antiviral therapy and concurrent COVID infection. She was given 30 mL an hour of hypertonic 3% saline over about 5 hours. This brought her sodium up 115. We will resume normal saline at 75 mL an hour and check q.6 to ensure a slow but steady rise to her sodium. Her baseline is approximately 128. -I have reviewed Dr. Lott's oncology note. I will reach out to her and aNt. I will likely follow through with chest abdomen pelvis CT in the morning. Oncology Hx: 1. Patient presented to her primary provider with increasing lymphadenopathy in neck and axilla, referred to Oncology at [facility] in [place] November 2020. 2. 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 3. CT neck, chest, abdomen/pelvis extensive non bulky lymphadenopathy with the largest lymph nodes in the right supraclavicular and right axillary regions at just over 4 cm. No splenomegaly. CBC WBC 10.2, hemoglobin/platelets normal, ANC 1530, ALC 8470, LDH slightly elevated at 289. 4. Treatment options discussed, opted for single agent weekly Rituxan x4. Tolerated well with decreased but not resolved lymphadenopathy. 5. Ms. Hammond relocated to [place] March 2022. She noted gradual increase in bilateral neck and bilateral axillary lymphadenopathy. She has also had an enlarging right epitrochlear lymph node. No B symptoms. Discussed recycling rituximab versus starting a BTK inhibitor. She wished to proceed with weekly rituximab infusions x 4. 6. Rituximab infusion x4 completed 05/26/2022. Had Rituxan reaction with initial infusion, no difficulty with subsequent infusion Status: Acute (4) Generalized weakness: Problem comment: PT and OT to evaluate Status: Acute (5) Essential hypertension: Problem comment: on lisinopril and metoprolol, HCTZ added 02/19, lisinopril changed to ARB valsartan due to throat symptoms 07/22 Status: Acute (6) Hyperlipidemia: Problem comment: on atorvastain Status: Acute (7) Chronic hyponatremia: Problem comment: HCTZ? hx of CLL and treated with Rituxan. held HcTZ at admission for NA of 112 in 11/23. likely related to free water intake, HCTZ, and SIADH related to CLL and/or concurrent covid. Status: Acute
[2022-11-01 14:53] LABS: Sodium* 115 mmol/L (135-149)
[2022-11-01 14:54] LABS: Blood Urea Nitrogen* 15 mg/dL (7-30); Calcium* 8.4 mg/dL (8.4-10.6); Carbon Dioxide* 19 mmol/L (20-32); Chloride* 85 mmol/L (96-114); Creatinine* 0.7 mg/dL (0.5-1.5); Estimated Glomerular Filt Rate 84 ml/min; Glucose* 145 mg/dL (60-115); Potassium* 4.4 mmol/L (3.6-5.1)
[2022-11-01 14:57] LABS: Creatinine Urine Random 24 mg/dL
[2022-11-01 21:49] LABS: Sodium* 116 mmol/L (135-149)
[2022-11-01] MEDS: ENOXAPARIN 40 MG/0.4 ML INJ SUBCUT (21:56)
[2022-11-01] MEDS: SODIUM CHLORIDE 0.9 % (FLUSH) 10 ML SYRINGE 5 ML IVF (21:56)
[2022-11-02] VITALS (9 sets, daily range): BP systolic 135–172; BP diastolic 68–98; PULSE 76–91; RESP 15–20; TEMP 36.1–37.3; O2SAT 93–97
[2022-11-02] MEDS: guaiFENesin 100 MG/ML CUP PO ×4 (04:50→21:20)
--- NOTE | 2022-11-02 07:33 | PC.NURSE ---
END OF SHIFT NOTE: PT PLEASANT AND COOPERATIVE. PT DENIES CP, SOB, N/V. AMBULATES WITH WALKER, GB, SBA. VSS ON RA; AFEBRILE. LAST NA+ 116. TELE READS NSR WITH 1ST DEGREE HB, BBB. STRESS INCONTINENCE D/T COUGH.
[2022-11-02 08:49] LABS: HCO3 VBG 24 mmol/L (21-28); Lactate* 1.2 mmol/L (0.5-1.9); PCO2 VBG 39 mmHG (40-50); PO2 VBG 47.2 mmHG (25-47)
[2022-11-02 08:51] LABS: Basophils Absolute Auto 0.02 K/uL (0.00-0.30); Basophils Percent Auto 0.2 % (0.0-3.0); Eosinophils Absolute Auto 0.04 K/uL (0.00-0.50); Eosinophils Percent Auto 0.4 % (0.0-7.0); Hematocrit 32.2 % (33.0-51.0); Immature Granulocytes Abs Auto 0.01 K/uL (0.00-0.30); Immature Granulocytes Pct Auto 0.1 %; Lymphocytes Percent Auto 61.1 % (20-44); Mean Corpuscular HGB Conc 34 gm/dL (32-36); Mean Corpuscular Hemoglobin 33 pg (26-34); Mean Corpuscular Volume 98 fL (80-100); Monocytes Percent Auto 12.6 % (0.0-11.0); Neutrophils Percent Auto 25.6 % (42.0-72.0); Platelet Count* 188 K/uL (140-440); RDW Coefficient of Variation % 13.5 % (11.5-15.5); White Blood Count* 9.36 K/uL (4.50-11.00)
[2022-11-02 08:53] LABS: Slide Review Reflex No
[2022-11-02 09:05] LABS: Chloride* 96 mmol/L (96-114); Potassium* 4.2 mmol/L (3.6-5.1); Sodium* 125 mmol/L (135-149)
[2022-11-02 09:07] LABS: Creatinine* 0.7 mg/dL (0.5-1.5); Estimated Glomerular Filt Rate 84 ml/min
[2022-11-02 09:08] LABS: Alanine Aminotransferase* 30 U/L (4-35); Alkaline Phosphatase* 95 U/L (40-150); Aspartate Amino Transferase* 35 U/L (12-35); Bilirubin Total* 0.8 mg/dL (0.1-1.5); Blood Urea Nitrogen* 13 mg/dL (7-30); Calcium* 8.5 mg/dL (8.4-10.6); Carbon Dioxide* 21 mmol/L (20-32); Glucose* 143 mg/dL (60-115); Total Protein* 6.8 g/dL (6.0-8.3)
[2022-11-02 09:11] LABS: C Reactive Protein* 0.6 mg/dL (0.5-1.0)
[2022-11-02 09:21] LABS: NT Pro B Type NatriureticPept* 2870 pg/mL; Troponin I* 0.06 ng/mL (0.01-0.04)
[2022-11-02 09:24] LABS: Procalcitonin* 0.06 ng/mL (<0.50)
[2022-11-02] MEDS: SODIUM CHLORIDE 1 GM TABLET PO ×2 (09:32→13:13)
[2022-11-02] MEDS: cephALEXin 500 MG CAPSULE PO ×2 (09:33→21:16)
[2022-11-02] MEDS: 0.9 % SODIUM CHLORIDE 1000 ml 1,000 ML 75 ML IV (09:33)
--- NOTE | 2022-11-02 10:20 | PC.SOCIAL ---
Discharge planning: If pt need a group home facility stay at discharge, [facility] anticipates having beds available on Sunday11/06/22 for pt and her . They will only consider her for admission if she needs at least a week of group home care before returning to her [facility] [address]. Faxed requested information to [facility]. [facility] is considering the 10 days since positive COVID test for pt to be from a test at their facility on 10/27/22. blade worker to follow up as needed.
--- NOTE | 2022-11-02 10:47 | P.IMPN_ITS ---
Progress Note: A&P Assessment and plan (1) Acute hyponatremia: Problem details: -likely related to free water intake, HCTZ, and SIADH related to CLL and/or concurrent covid. -rec'd 3% saline am of 11/01 - repeat was up to 115, returned to NS 75cc/hr on pm of 11/01, in addition to salt tabs with water restriction -sodium had increased slowly and as anticipated. -d/c fluids - decrease free water restriction to 2 L/24 -recheck sodium in am Status: Acute (2) Encephalopathy due to COVID-19 virus: Problem details: Onset of symptoms 10/26. Status post Paclovid 5 day course. Admitted for weakness/encephalopathy and hyponatremia. -I have asked for a pharmacy consult related to use of Remdesivir. Currently we have no further dosing available in our supply, she is status post a 5 day oral antiviral treatment and this likely suffices. Status: Acute (3) Elevated troponin: Problem details: -likely demand ischemia -blood pressure is appropriate -repeat at 2 pm, update echo Status: Acute (4) UTI (urinary tract infection): Problem details: -Klebsiella -Keflex starting today, 7 day course Status: Acute (5) CLL (chronic lymphocytic leukemia): Problem details: -spoke with Dr. Lott -she advised just treating the covid and low sodium - no further imaging. she will see her in clinic. Oncology Hx: 1. Patient presented to her primary provider with increasing lymphadenopathy in neck and axilla, referred to Oncology at [facility] in [place] November 2020. 2. 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 3. CT neck, chest, abdomen/pelvis extensive non bulky lymphadenopathy with the largest lymph nodes in the right supraclavicular and right axillary regions at just over 4 cm. No splenomegaly. CBC WBC 10.2, hemoglobin/platelets normal, ANC 1530, ALC 8470, LDH slightly elevated at 289. 4. Treatment options discussed, opted for single agent weekly Rituxan x4. Tolerated well with decreased but not resolved lymphadenopathy. 5. Ms. Hammond relocated to [place] March 2022. She noted gradual increase in bilateral neck and bilateral axillary lymphadenopathy. She has also had an enlarging right epitrochlear lymph node. No B symptoms. Discussed recycling rituximab versus starting a BTK inhibitor. She wished to proceed with weekly rituximab infusions x 4. 6. Rituximab infusion x4 completed 05/26/2022. Had Rituxan reaction with initial infusion, no difficulty with subsequent infusion Status: Acute (6) Generalized weakness: Problem details: -improving nicely Status: Acute (7) Essential hypertension: Problem details: on lisinopril and metoprolol, HCTZ added 02/19, lisinopril changed to ARB valsartan due to throat symptoms 07/22 Status: Acute (8) Hyperlipidemia: Problem details: on atorvastain Status: Acute (9) Chronic hyponatremia: Problem details: HCTZ? hx of CLL and treated with Rituxan. held HcTZ at admission for NA of 112 in 11/23. likely related to free water intake, HCTZ, and SIADH related to CLL and/or concurrent covid. Status: Acute Subjective Date Seen: 11/02/22 Interval history: Daily Progress Note - Hospital Medicine Day #: 2 CC: Severe hyponatremia, COVID, UTI, weakness OVERNIGHT UPDATES FROM STAFF & MED, LAB, IMAGING UPDATES -improved. Stable on her feet. -sodium has come up nicely from 112-125 today. That is over approximately 28 hours. -troponin is up minimally today to 0.06, normal yesterday. Likely the stress from COVID and hyponatremia -she is growing Klebsiella in her urine culture, started Keflex this morning -spoke with her oncologist yesterday who advised not scanning secondary to the reactive nature of her lymph nodes with CLL and concurrent COVID. Objective: Vitals: see above Lungs: Clear. enlarged asymetric lymph nodes - anterior right side cervical chain, bilateral axilla Cardiac: S1S2. Disposition/Potential discharge - She can either return to her apartment at [facility] with increased services or to the care center. Total time is 35 minutes with greater than 50% spent in counseling and coordination of care. Exam Const: Vital Signs, click to edit/add: Vital Signs - 24 hr 11/01/22 11:22 11/01/22 15:00 11/01/22 15:00 Temperature 98.5 F 97.7 F Pulse Rate Pulse Rate [Pulse Oximeter] 70 60 64 Respiratory Rate 20 20 18 Blood Pressure [Le ft Radial Artery] 144/67 H 142/71 H Pulse Oximetry 95 94 Oxygen Delivery Me thod Room Air Room Air 11/01/22 15:00 11/01/22 19:50 11/01/22 19:50 Temperature 97.8 F Pulse Rate 70 Pulse Rate [Pulse Oximeter] 76 76 Respiratory Rate 20 20 Blood Pressure [Le ft Radial Artery] 176/95 H Pulse Oximetry 98 Oxygen Delivery Me thod Room Air 11/01/22 23:00 11/02/22 00:30 11/02/22 00:30 Temperature 98.4 F Pulse Rate 71 Pulse Rate [Pulse Oximeter] 86 86 Respiratory Rate 18 18 Blood Pressure [Le ft Radial Artery] 172/91 H Pulse Oximetry 97 Oxygen Delivery Ar thod Room Air 11/02/22 03:00 11/02/22 03:00 11/02/22 08:37 Temperature 97.5 F L 97 F L Pulse Rate 80 Pulse Rate [Pulse Oximeter] 85 81 Respiratory Rate 18 15 Blood Pressure [Le ft Radial Artery] 160/88 H 140/68 H Pulse Oximetry 96 93 [facility] Room Air Labs Labs: Laboratory Results - last 24 hr 11/01/22 11/01/22 11/01/22 03:25 13:35 20:50 WBC RBC Hgb Hct MCV MCH MCHC RDW Coeff of Ebonie Plt Count Neut % (Auto) Lymph % (Auto) Webb % (Auto) Eos % (Auto) Baso % (Auto) Neut # (Auto) Lymph # (Auto) Webb # (Auto) Eos # (Auto) Baso # (Auto) VBG pH VBG pCO2 VBG pO2 VBG HCO3 Sodium 115 L* 116 L* Potassium 4.4 Chloride 85 L Carbon Dioxide 19 L BUN 15 Creatinine 0.7 Estimated Creat Clear 37.10 Estimated GFR 84 Glucose 145 H Lactate Calcium 8.4 Ionized Calcium Hai Magnesium Total Bilirubin AST ALT Alkaline Phosphatase Troponin I C-Reactive Protein NT-Pro-B Natriuret Pep Total Protein Albumin Procalcitonin Ur Random Creatinine 11/02/22 11/02/22 11/02/22 08:40 08:40 08:40 WBC 9.36 RBC 3.30 L Hgb 11.0 L Hct 32.2 L MCV 98 MCH 33 MCHC 34 RDW Coeff of Ebonie 13.5 Plt Count 188 Neut % (Auto) 25.6 L Lymph % (Auto) 61.1 H Webb % (Auto) 12.6 H Eos % (Auto) 0.4 Baso % (Auto) 0.2 Neut # (Auto) 2.40 Lymph # (Auto) 5.70 H Webb # (Auto) 1.20 H Eos # (Auto) 0.04 Baso # (Auto) 0.02 VBG pH 7.400 VBG pCO2 39 L VBG pO2 47.2 H VBG HCO3 24 Sodium 125 L Potassium 4.2 Chloride 96 Carbon Dioxide 21 BUN 13 Creatinine 0.7 Estimated Creat Clear 37.10 Estimated GFR 84 Glucose 143 H Lactate 1.2 Calcium 8.5 Ionized Calcium Hai 1.10 L Magnesium 2.0 Total Bilirubin 0.8 AST 35 ALT 30 Alkaline Phosphatase 95 Troponin I 0.06 H* C-Reactive Protein 0.6 NT-Pro-B Natriuret Pep 2870 Total Protein 6.8 Albumin 4.0 Procalcitonin 0.06 Ur Random Creatinine
[2022-11-02 14:37] LABS: Troponin I* 0.09 ng/mL (0.01-0.04)
--- NOTE | 2022-11-02 14:37 | PC.NURSE ---
alert and oriented. at times a bit covid brain fog. mild. uses call light appropiately. vs wnl. trop sl elevated. repeat this after noon. sodium 125. better. IVF sl at 1030. pt up ad linda in room with her walker and steady. doing her own cares. good po intake. in chair most of day. U/O 1000cc. IVF 300. Po intake 600cc
--- NOTE | 2022-11-02 17:03 | PC.SOCIAL ---
Discharge planning: Met with pt's son-in-law and dtr (by phone) to discuss discharge plan. They are aware pt may be able to return home to [facility] at discharge. Dtr expressed some concern that she would rather have pt go to the [facility] where someone could make sure she does not over-do it but is aware that a stay would only be covered by insurance if there is a skilled need for care. If needed, they would like pt to go to the [facility] for short term rehab and if not needed, they expect pt to return to her apartment at [facility]. Pt's (who is also hospitalized) is expected to be discharged to the [facility] for short term rehab, so pt would be returning to [facility] alone. Pt is only receiving meals at the facility, so any increased services would have to be arranged if needed. c iron worker faxed information to Rosana Reyes at [facility] who stated she expects to have a bed available for patient on Sunday if she needs short term rehab. Family member's questions were answered. c iron worker to follow up as needed.
[2022-11-02] MEDS: ASPIRIN 81 MG TAB.CHEW 324 MG PO (17:37)
[2022-11-02 20:34] LABS: Troponin I* 0.06 ng/mL (0.01-0.04)
[2022-11-02] MEDS: ENOXAPARIN 40 MG/0.4 ML INJ SUBCUT (21:16)
[2022-11-02] MEDS: SODIUM CHLORIDE 0.9 % (FLUSH) 10 ML SYRINGE 5 ML IVF (21:55)
--- NOTE | 2022-11-02 23:16 | PC.NURSE ---
Nursing Care Hours: [id number] Pt this shift calm and cooperative, alert and oriented. Independent with ambulation. IV patent and SL. EKG and tele orders retrieved and documented on. Eating and drinking well, continent of bladder. Fine crackles auscultated in mid to low lobes bilat. Intermittent cough per pt, requesting Guaifenesin x2 this shift. Tele shows NSR with LBB and repeat tele at 1900 shows dysrhythmia NVR with BBB. No c/o chest pain or SOB. Pt refused sodium bicarb tablet in evening d/t making stomach upset. Abdomen distended but soft, no c/o pain. Requested bowel aid d/t no BM since 10/31 and feeling ready to go. Colace ordered.
[2022-11-02] MEDS: DOCUSATE SODIUM 100 MG CAPSULE PO (23:25)
[2022-11-02 23:43] LABS: Hours Collected Not Provided hr; Total Volume Not Provided mL
[2022-11-03 02:46] VITALS: BP 145/69; PULSE 87; RESP 16; TEMP 36.6; O2SAT 95
[2022-11-03 03:00] VITALS: PULSE 86
--- NOTE | 2022-11-03 05:45 | PC.NURSE ---
END OF SHIFT NOTE: PT PLEASANT AND COOPERATIVE. AMBULATES INDEPENDENTLY IN ROOM WITH WALKER. TELE READS NSR WITH 1ST DEGREE HB AND BBB. UNEVENTFUL SHIFT.
[2022-11-03 07:00] VITALS: BP 139/84; PULSE 73; PULSE 87; PULSE 89; RESP 18; TEMP 36.9; O2SAT 97
[2022-11-03 07:04] LABS: Chloride* 101 mmol/L (96-114); Potassium* 4.6 mmol/L (3.6-5.1); Sodium* 130 mmol/L (135-149)
[2022-11-03 07:06] LABS: Creatinine* 0.7 mg/dL (0.5-1.5); Estimated Glomerular Filt Rate 84 ml/min
[2022-11-03 07:07] LABS: Blood Urea Nitrogen* 19 mg/dL (7-30); Carbon Dioxide* 25 mmol/L (20-32); Glucose* 87 mg/dL (60-115)
[2022-11-03 07:08] LABS: Calcium* 8.7 mg/dL (8.4-10.6)
[2022-11-03 07:10] LABS: C Reactive Protein* 1.1 mg/dL (0.5-1.0)
[2022-11-03 07:32] LABS: Troponin I* 0.06 ng/mL (0.01-0.04)
[2022-11-03] MEDS: DOCUSATE SODIUM 100 MG CAPSULE PO (08:02)
[2022-11-03] MEDS: guaiFENesin 100 MG/ML CUP PO (08:02)
[2022-11-03] MEDS: cephALEXin 500 MG CAPSULE PO (10:20)
[2022-11-03] MEDS: SODIUM CHLORIDE 0.9 % (FLUSH) 10 ML SYRINGE 5 ML IVF (10:24)
[2022-11-03 10:25] VITALS: BP 126/64; PULSE 89; RESP 18; TEMP 37.6; O2SAT 97
[2022-11-03 11:00] VITALS: PULSE 74
--- NOTE | 2022-11-03 11:19 | PC.SOCIAL ---
Discharge planning- Phone call to pt's daughter, Margie, at [phone]. Provided update on pt's discharge back to previous living situation ([facility]). Daughter will get clothing from pt's apartment and come to the hospital. Daughter will transport pt after discharge. Phone call to Mabel at [facility] ([phone]). Informed that pt is medically cleared for discharge. Mabel requested progress and therapy notes to be faxed. Faxed progress and therapy notes to [phone]. Provided update to charge nurse. Social Work will follow up as necessary.
--- NOTE | 2022-11-03 16:09 | P.DS_ITS ---
DS: Providers Provider Date Seen: 11/03/22 Date of admission: 11/01/22 03:26 Primary care physician: Gabrielle Barreto MD Admitting Clinician: Olga Jacques MD Consults: 11/01/22 04:06 Consult to Physical Therapy [CONS] Routine Comment: Reason(s) for PT Consult:: Evaluate and Treat Any Restrictions?:: No Restrictions 11/01/22 04:47 Consult to Occupational Therapy [CONS] Routine Comment: Reason(s) for OT Consult:: Difficulty Managing ADLs Any Restrictions?:: No Restrictions Consult to Physical Therapy [CONS] Routine Comment: Reason(s) for PT Consult:: Weakness Any Restrictions?:: No Restrictions Attending Physician on discharge: Yamilet Luna MD [facility] Date of Discharge: 11/03/22 DS: Diagnosis Discharge Diagnosis (1) Encephalopathy due to COVID-19 virus: Status: Acute Problem details: Onset of symptoms 10/26. Status post Paclovid 5 day course. Admitted for weakness/encephalopathy and hyponatremia. -rapidly improved with correction of her sodium. No further COVID specific medication was used. (2) Acute hyponatremia: Status: Acute Problem details: -likely related to free water intake, HCTZ, and SIADH related to CLL and/or co ncurrent covid. -rec'd 3% saline am of 11/01 - repeat was up to 115, returned to NS 75cc/hr on pm of 11/01, in addition to salt tabs with water restriction -discharge sodium 130. -I am holding her hydrochlorothiazide and would recommend no further thiazide diuretic secondary to her history of hyponatremia. (3) Chronic hyponatremia: Status: Acute Problem details: HCTZ? hx of CLL and treated with Rituxan. held HcTZ at admission for NA of 112 in 11/23. likely related to free water intake, HCTZ, and SIADH to her concurrent covid. Discharge sodium 130. (4) CLL (chronic lymphocytic leukemia): Status: Acute Problem details: -spoke with Dr. Lott -she advised just treating the covid and low sodium - no further imaging. she will see her in clinic. Oncology Hx: 1. Patient presented to her primary provider with increasing lymphadenopathy in neck and axilla, referred to Oncology at [facility] in [place] November 2020. 2. 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 3. CT neck, chest, abdomen/pelvis extensive non bulky lymphadenopathy with the largest lymph nodes in the right supraclavicular and right axillary regions at just over 4 cm. No splenomegaly. CBC WBC 10.2, hemoglobin/platelets normal, ANC 1530, ALC 8470, LDH slightly elevated at 289. 4. Treatment options discussed, opted for single agent weekly Rituxan x4. Tolerated well with decreased but not resolved lymphadenopathy. 5. Ms. Hammond relocated to [place] March 2022. She noted gradual increase in bilateral neck and bilateral axillary lymphadenopathy. She has also had an enlarging right epitrochlear lymph node. No B symptoms. Discussed recycling rituximab versus starting a BTK inhibitor. She wished to proceed with weekly rituximab infusions x 4. 6. Rituximab infusion x4 completed 05/26/2022. Had Rituxan reaction with initial infusion, no difficulty with subsequent infusion (5) Generalized weakness: Status: Acute Problem details: -improving nicely (6) Elevated troponin: Status: Acute Problem details: -likely demand ischemia -blood pressure is appropriate -peaked the night before discharge. -no specific symptoms related to cardiac ischemia -echo was very reassuring (7) UTI (urinary tract infection): Status: Acute Problem details: -Klebsiella -discharging on Keflex for a completion of 7 days course DS: Summary Hospital Course Hospital Course: HOSPITALIST DISCHARGE SUMMARY ATTENDING PHYSICIAN: Yamilet Luna MD FINAL DIAGNOSIS: Acute on chronic hyponatremia COVID-19 weakness UTI Demand ischemia with mildly elevated troponin CLL HOSPITAL FOLLOWUP ISSUES: 1. Sodium. Charge sodium was 130. Continue to hold the hydrochlorothiazide. Limit free water intake to 2.5 L a day. 2. UTI. She should finish all of her Keflex. 3. COVID-19, no specific follow-up indicated. 4. Demand ischemia, no specific follow-up indicated. Her echocardiogram was quite reassuring. 5. Follow-up with her oncologist, Dr. Lott, arranged. REFERRALS WHILE ADMITTED: PT and OT REFERRALS AFTER DISCHARGE: Follow-up with her PCP and oncologist. BRIEF HOSPITAL COURSE: 87-year-old with a history of CLL and chronic hyponatremia presented about 6 days into her COVID-19 infection. She was previously vaccinated and had received a 5 day course of Paxlovid. She presented with a sodium of 112 which was felt likely to be related to a combination of events: Increasing free water intake during COVID, hydrochlorothiazide and SIADH from her COVID and or chronic lymphocytic leukemia. Her sodium improved nicely with normal saline, a few hours of concentrated hypertonic saline, free water restriction and salt tabs. And we held her hydrochlorothiazide. By discharge her sodium was 130. She felt much stronger, she was independent within her room. We did note a small bump in her troponin. Peak was 0.09. We felt like this was likely related to the stress on her body from a severe hyponatremia and her COVID in background was her CLL. She never had symptoms of acute coronary syndrome or ischemia. Her echocardiogram was quite reassuring with no wall motion abnormalities, normal left and right ventricular function and normal PA pressures. We did note a symmetrical anterior cervical chain lymphadenopathy as well as bilateral axilla lymphadenopathy. In speaking with her oncologist it was likely more reactive than oncologic in nature secondary to her concurrent COVID infection. Her oncologist just recommended S giving her supportive care and she would follow up with the patient as an outpatient once her COVID had completely convalesced. SUBSTANTIVE NOTATIONS ON IMAGING, LAB, MICROBIOLOGY/PATHOLOGY STUDIES: Mild leukocytosis, peaked white blood cell count was 11.1 with 65% lymphocytes. Hemoglobin was stable. Platelets were stable. As stated above her sodium was up to 130. Her baseline chronic hyponatremia typically sat at about [id number]. Troponin peaked to 0.09. UA grew Klebsiella pneumoniae that was pansensitive Echo Normal left ventricular size - preserved EF Normal right left ventricular cavity and function. Age-related changes to her valves. Normal PA pressures DISCHARGE MEDICATIONS: See Reconciled list - SIGNIFICANT CHANGES: Holding hydrochlorothiazide REVIEW OF SYSTEMS No new chest pain or dyspnea Pain controlled No voiding difficulties Tolerating diet challenge PHYSICAL EXAM: CONSTITUTIONAL: VITAL SIGNS: see record. HEENT: Normocephalic, atraumatic. PERRL, EOMI, conjunctivae pink, no scleral icterus. Ears and nose externally normal. Pharynx normal. NECK: No JVD. No carotid bruit, no thyromegaly, reactive adenopathy as described above CHEST: Clear to auscultation bilaterally. HEART: S1 and S2 normal. Edema ABDOMEN: Soft, nontender. Normal bowel sounds. MUSCULOSKELETAL: No gross joint deformity or swelling. NEURO: Cranial nerves intact. Grossly intact. No asymmetric findings. SKIN: No rashes, petechiae, concerning changes PSYCHIATRIC: Mood euthymic. DISPOSITION: Home for self-care, assisted living [facility] Time spent on discharge 37 minutes. Status at Discharge Functional status at discharge: independent ambulation Overall status at discharge: patient is progressing back to baseline Time Spent with Patient Time attestation: Total time spent providing and/or coordinating discharge services: Time spent: Greater than 30 minutes Exam Const: Vital Signs, click to edit/add: Vital Signs - 24 hr 11/02/22 19:00 11/02/22 19:00 11/02/22 23:00 Temperature 98.6 F Pulse Rate 84 Pulse Rate [Pulse Oximeter] 76 83 Respiratory Rate 20 Blood Pressure [Le ft Arm] Blood Pressure [Le ft Radial Artery] 156/84 H Blood Pressure [Ri ght Arm] Pulse Oximetry 97 Oxygen Delivery Me thod Room Air 11/02/22 23:00 11/02/22 23:00 11/03/22 02:46 Temperature 98.3 F 97.8 F Pulse Rate 78 Pulse Rate [Pulse Oximeter] 84 87 Respiratory Rate 18 16 Blood Pressure [Le ft Arm] 145/69 H Blood Pressure [Le ft Radial Artery] 152/91 H Blood Pressure [Ri ght Arm] Pulse Oximetry 93 95 Oxygen Delivery Me thod Room Air Room Air 11/03/22 03:00 11/03/22 07:00 11/03/22 10:25 Temperature 98.4 F 99.7 F H Pulse Rate 86 Pulse Rate [Pulse Oximeter] 87 89 Respiratory Rate 18 18 Blood Pressure [Le ft Arm] Blood Pressure [Le ft Radial Artery] Blood Pressure [Ri ght Arm] 139/84 126/64 Pulse Oximetry 97 97 Oxygen Delivery Me thod Room Air Room Air DS: Data Data Completed and Pending Labs on day of discharge: Labs from last 24 hours 11/03/22 11/02/22 11/01/22 06:29 20:00 03:25 Sodium 130 L Potassium 4.6 Chloride 101 Carbon Dioxide 25 BUN 19 Creatinine 0.7 Estimated Creat Clear 37.10 Estimated GFR 84 Glucose 87 Calcium 8.7 Troponin I 0.06 H* 0.06 H* C-Reactive Protein 1.1 H Ur Creatinine per Vol 27 Ur Creatinine 24 Hour Not Applicable U Collection Duration Not Provided Urine Total Volume Not Provided Ur Sodium per Vol 85 Ur Sodium mmol/Day Not Applicable Discharge Plan Discharge Disposition: Home, Self-Care Date of Admission: 11/01/22 03:26 Primary Care Provider: Gabrielle Barreto Condition: Improved Anticipated Discharge Date/Time: 11/03/22 11:27 Discharge Medications: New cephalexin 500 mg Capsule 500 mg PO BID Qty: 12 0RF Continued metoprolol succinate 25 mg tablet extended release 24 hr 25 mg PO DAILY ICaps AREDS2 250 mg-200 unit -12.5 mg-1 mg capsule See Rx Instructions PO DAILY Rx Instructions: PO; daily acetaminophen [Tylenol Extra Strength] 500 mg tablet See Rx Instructions PO Q6H PRN Rx Instructions: 500-1000 orally every 6 hours PRN; Paxlovid (EUA) 300 mg (150 mg x 2)-100 mg tablets,dose pack 3 ea PO QAM AND QPM Qty: 30 0RF atorvastatin 20 mg tablet 20 mg PO HS Label Comments: TAKE 1 TABLET BY MOUTH AT BEDTIME valsartan 160 mg tablet 160 mg PO DAILY Discontinued hydrochlorothiazide 25 mg tablet 25 mg PO QAM Discharge Orders: Discharge Order (Routine); Ordered 11/03/22 Ordered By: Yamilet Luna Patient Education: Cephalexin (By mouth), Hyponatremia (DC), COVID-19 (Coronavirus Disease 2019) (DC) Additional Instructions: 1. Limit regular water intake to 2.5 Liters max in 24 hours 2. Stop HCTZ (hydrochlorothiazide) as it often lowers sodium levels. 3. Finish all antibiotic for UTI Activity Level: Activity as Tolerated and No strenuous activity Discharge Diet: Regular Follow Up Appointments: Lilly Lott MD [Staff Physician] - 11/24/22 (f/u CLL - s/p hospitalizaton for Covid/hypnonatriemia Clinic states this doctor has not seen patient, [facility] seen [facility] Dr. Lidia Ro please schedule a f/u appointment.) Gabrielle Barreto MD [Primary Care Provider] - 11/06/22 11:00 am (f/u covid, weakness, blood pressure and low sodium. Recommend f/u BMP) Forms: [employer] Info Instructions
--- NOTE | 2022-11-03 16:20 | PC.NURSE ---
Nursing Care Notes: [id number] Pt this shift calm and cooperative with cares, alert and oriented. VSS, tele shows sinus arrhythmia with BBB. No c/o pain. Stable on RA, independent in room. Fine crackles heard mid to low lobes bilaterally. Intermittent cough, guaifenesin given. Colace PRN, no BM. Discharge instructions provided. IV was pulled out during shower, no trauma noted. Catheter not observed. Wheeled out to [employer] vehicle.
== END 2022-11-03 13:45 | disposition home or self-care (01) | DRG 178 ==
LOC: ED 01:56 → MEDSURG 03:29
PROVIDERS: Family Medicine; Internal Medicine; Admitting Provider Family Medicine; Emergency Provider Family Medicine; PCP Internal Medicine; Visit Provider Family Medicine
DX: U07.1 COVID-19 (principal); C91.10 Chronic lymphocytic leukemia of B-cell type not having achieved remission; E22.2 Syndrome of inappropriate secretion of antidiuretic hormone; G93.49 Other encephalopathy; N39.0 Urinary tract infection, site not specified; R53.1 Weakness; I10 Essential (primary) hypertension; E78.5 Hyperlipidemia, unspecified; B96.1 Klebsiella pneumoniae [K. pneumoniae] as the cause of diseases classified elsewhere
CPT/HCPCS: 36415; 71045; 80048; 80053; 81003; 81015; 82330; 82570; 82803; 83605; 83690; 83735; 83880; 84145; 84295; 84300; 84484; 85025; 86140; 87086; 87186; 87502; 87634; 87635; 93005; 93306; 97112; 97116; 97162; 97165; 97535; 99283; 99285; G0378; A9270; J1650; J7030; J7120; J7131

== ENCOUNTER 2022-11-06 11:15 | Outpatient (CLI) | payer MEDICARE, BC, SELFPAY ==
[2022-11-06 13:37] LABS: Chloride* 96 mmol/L (96-114)
[2022-11-06 13:38] LABS: Potassium* 5.1 mmol/L (3.6-5.1); Sodium* 127 mmol/L (135-149)
[2022-11-06 13:40] LABS: Creatinine* 0.8 mg/dL (0.5-1.5); Estimated Glomerular Filt Rate 71 ml/min
[2022-11-06 13:41] LABS: Blood Urea Nitrogen* 21 mg/dL (7-30); Calcium* 9.2 mg/dL (8.4-10.6); Carbon Dioxide* 23 mmol/L (20-32)
[2022-11-06 13:42] LABS: Glucose* 88 mg/dL (60-115)
== END 2022-11-06 11:16 | disposition home or self-care (01) ==
PROVIDERS: PCP Internal Medicine; Visit Provider Internal Medicine
DX: E87.1 Hypo-osmolality and hyponatremia (principal)
CPT/HCPCS: 80048

== ENCOUNTER 2022-12-13 14:22 | Outpatient (CLI) | payer MEDICARE, BC, SELFPAY ==
--- NOTE | 2022-12-13 15:00 | CRLHL7_ITS ---
For Patients: As a result of the 21st Century Cures Act, medical imaging exams and procedure reports are released immediately into your electronic medical record. You may view this report before your referring provider. If you have questions, please contact your health care provider. Indication: CLL/SLL, INCREASING LAD AND ABD GIRTH Technique: Postcontrast CT chest, abdomen and pelvis. 72 cc Isovue 370 intravenous contrast. Please note that all CT scans at this facility use dose modulation, iterative reconstruction, and/or weight-based dosing when appropriate to reduce radiation dose to as low as reasonably achievable. Comparison: None Findings: In the chest, there is bulky bilateral axillary adenopathy with lymph nodes measuring up to approximately 6.4 cm. Bulky upper mediastinal/supraclavicular/thoracic inlet adenopathy noted with innumerable lymph nodes measuring up to approximately 3.0 cm. The airway is not compromised. No thyroid lesion. Middle mediastinal adenopathy is present with lymph nodes measuring up to 2 cm. Bilateral hilar adenopathy with lymph nodes measuring up to 1.5 cm. Atherosclerotic disease. No pleural or pericardial effusion. Mild fibrotic changes are present in a peripheral distribution bilaterally particularly within both lower lobes consistent with mild interstitial fibrosis. No focal infiltrate. No suspicious pulmonary nodule. Multilevel degenerative changes are present. There is a subacute or chronic fracture deformity of the right lateral 9th rib. In the abdomen, there is no suspicious intrahepatic mass. The gallbladder is incompletely distended. Normal tapering of the biliary tree. No pancreatic lesion. The spleen is not enlarged and measures up to 10.6 cm. No hydronephrosis. No adrenal lesion. Simple cyst upper pole left kidney measuring 1.4 cm. Atherosclerotic disease. No aneurysm. Bulky retroperitoneal adenopathy with lymph nodes measuring up to approximately 6 cm. Mass effect upon the adjacent structures noted. Mesenteric adenopathy also present with lymph nodes measuring up to 2.6 cm. No bowel obstruction. In the pelvis, the bladder is unremarkable. Increased stool within the right side of the colon. Appendix is within normal limits. No small bowel obstruction. Bulky bilateral pelvic sidewall adenopathy, right greater than left, with lymph nodes measuring up to 6.2 cm. Degenerative changes. No compression fracture. Impression: Bulky adenopathy in the chest, abdomen and pelvis. Please note that all CT scans at this facility use dose modulation, iterative reconstruction, and/or weight-based dosing when appropriate to reduce radiation dose to as low as reasonably achievable. Dictated by Radu Washington MD @ 12/17/2022 9:04:40 AM (Electronically Signed)
--- NOTE | 2022-12-13 15:00 | CRLHL7_ITS ---
For Patients: As a result of the Century Cures Act, medical imaging exams and procedure reports are released immediately into your electronic medical record. You may view this report before your referring provider. If you have questions, please contact your health care provider. INDICATION: CLL/SLL restage COMPARISON: none TECHNIQUE: A CT volumetric acquisition was performed of the neck during intravenous infusion of 72 cc Isovue 370 nonionic intravenous contrast. Please note that all CT scans at this facility use dose modulation, iterative reconstruction, and/or weight-based dosing when appropriate to reduce radiation dose to as low as reasonably achievable. FINDINGS: Bulky bilateral cervical adenopathy involving the anterior and posterior triangles. Lymph nodes measure up to approximately 4.0 cm. Enlarged lymph nodes within both parotid glands. Vallecula and piriform sinuses normal as is the epiglottis. Mucosal thickening within the maxillary sinuses, mild. Opacification of the sphenoid sinuses, left greater than right along with the ethmoid sinuses, right greater than left. Multilevel degenerative disc disease throughout the cervical spine. IMPRESSION: Bulky bilateral cervical adenopathy. Bilateral sinus disease. Please note that all CT scans at this facility use dose modulation, iterative reconstruction, and/or weight-based dosing when appropriate to reduce radiation dose to as low as reasonably achievable. Dictated by Radu Washington MD @ 12/17/2022 9:30:01 AM (Electronically Signed)
== END 2022-12-13 14:23 | disposition home or self-care (01) ==
LOC: CT 14:23
PROVIDERS: PCP Internal Medicine; Visit Provider Internal Medicine Hematology & Oncology
DX: C91.10 Chronic lymphocytic leukemia of B-cell type not having achieved remission (principal); R59.0 Localized enlarged lymph nodes; J32.9 Chronic sinusitis, unspecified
CPT/HCPCS: 70491; 71260; 74177; 84295; Q9967

== ENCOUNTER 2023-05-07 12:15 | Outpatient (RCR) | payer MEDICARE, BC, SELFPAY ==
[2022-12-07 08:46] LABS: Basophils Absolute Auto 0.01 K/uL (0.00-0.30); Basophils Percent Auto 0.2 % (0.0-3.0); Eosinophils Absolute Auto 0.05 K/uL (0.00-0.50); Eosinophils Percent Auto 1.1 % (0.0-7.0); Hematocrit 31.4 % (33.0-51.0); Hemoglobin* 10.3 gm/dL (12.0-16.0); Mean Corpuscular HGB Conc 33 gm/dL (32-36); Mean Corpuscular Hemoglobin 34 pg (26-34); Mean Corpuscular Volume 103 fL (80-100); Monocytes Percent Auto 10.2 % (0.0-11.0); Neutrophils Percent Auto 26.5 % (42.0-72.0); Platelet Count* 158 K/uL (140-440); RDW Coefficient of Variation % 14.7 % (11.5-15.5); Red Blood Count 3.04 m/uL (4.00-5.20)
[2022-12-07 09:10] LABS: Slide Review Reflex Yes
[2022-12-07 09:11] LABS: Slide Review Acceptable Review (Acceptable)
--- NOTE | 2022-12-07 15:16 | ONC.NURNOTE ---
CBC results reviewed by Dr. Lott, no concerns. Engineer Specialist called Giulia pt's daughter with CBC results and follow up appt date and time. CT scheduled for next week.
[2022-12-07 15:45] LABS: Creatinine* 0.9 mg/dL (0.5-1.5); Estimated Glomerular Filt Rate 62 ml/min
[2022-12-21 08:11] LABS: Eosinophils Absolute Auto 0.06 K/uL (0.00-0.50); Eosinophils Percent Auto 1.3 % (0.0-7.0); Hematocrit 32.5 % (33.0-51.0); Hemoglobin* 10.6 gm/dL (12.0-16.0); Lymphocytes Percent Auto 54.4 % (20-44); Mean Corpuscular HGB Conc 33 gm/dL (32-36); Mean Corpuscular Hemoglobin 34 pg (26-34); Mean Corpuscular Volume 104 fL (80-100); Monocytes Percent Auto 19.8 % (0.0-11.0); Neutrophils Percent Auto 24.5 % (42.0-72.0); Platelet Count* 172 K/uL (140-440); RDW Coefficient of Variation % 14.8 % (11.5-15.5); Red Blood Count 3.12 m/uL (4.00-5.20); White Blood Count* 4.74 K/uL (4.50-11.00)
[2022-12-21 08:13] LABS: Slide Review Reflex Yes
[2022-12-21 09:02] LABS: Albumin* 4.2 g/dL (3.3-5.0); Chloride* 102 mmol/L (96-114); Potassium* 4.6 mmol/L (3.6-5.1); Sodium* 135 mmol/L (135-149)
[2022-12-21 09:03] LABS: Slide Review Acceptable Review (Acceptable)
[2022-12-21 09:04] LABS: Creatinine* 1.1 mg/dL (0.5-1.5); Estimated Glomerular Filt Rate 49 ml/min
[2022-12-21 09:05] LABS: Alanine Aminotransferase* 22 U/L (4-35); Alkaline Phosphatase* 98 U/L (40-150); Aspartate Amino Transferase* 27 U/L (12-35); Bilirubin Total* 0.7 mg/dL (0.1-1.5); Blood Urea Nitrogen* 20 mg/dL (7-30); Calcium* 9.4 mg/dL (8.4-10.6); Carbon Dioxide* 27 mmol/L (20-32); Glucose* 165 mg/dL (60-115); Total Protein* 7.3 g/dL (6.0-8.3)
--- NOTE | 2022-12-29 12:36 | ONC.NURNOTE ---
Addendum entered by Jannet Whiting RN 01/04/23 09:24: [employer] by William requesting medication list, this was faxed to [phone] Addendum entered by Melissa Mayers RN 12/29/22 13:44: Furnace Repairer Helper in touch with Haris and son in law family has been in touch in [facility] financial support services about future follow up if a gamal opens with funding instructions given on the [employer] program, but they feel that the patient is over the income limit health science writer encouraged them to apply, health science writer has experience with patients enrolled when outside of income limit [employer] is option worth looking into EKG set up at the [facility] for 2:30 on 01/09/23 with lab and new medication teaching prior to this appt at 1:00 Addendum entered by Melissa Mayers RN 12/29/22 13:07: This office has not been able to reach patient at her home phone # sent email to Noelle per email listed on patients demographics Original Note: [facility] ran the Calquence RX through- they state that there was no requirement for a PA Copay $3300/month there are no open copay grants for CLL at this time patient will need to apply to the [employer] patient assistance program at: ?1-415-AAT-F738 ( ) health science writer will update patient
--- NOTE | 2023-01-02 11:00 | ONC.NURNOTE ---
Addendum entered by Melissa Mayers RN 01/03/23 14:30: Benefits investigation completed and application will need to go [place] [employer] [place] free drug RX faxed to [place] [employer] [place] email sent to Noelle with the phone number for [place] [employer] [place] enrollment- consent needed for enrollment and income verification [phone] with 3 days for application review Original Note: first months copay is $3300/ month followed by over $800/month following no PA request Danisha enrollment application faxed to [employer] at [phone] Ramos
--- NOTE | 2023-01-05 13:49 | ONC.NURNOTE ---
Addendum entered by Melissa Mayers RN 01/05/23 14:01: Noelle has ordered [facility] Calquence [facility] at the cost quoted from the pharmacy although unlikely to qualify- senior underwriter did inform patient that she could complete application for free drug through [employer] Original Note: per [facility] PFA Noelle does not qualify for copay assist this year- income is over the limit
[2023-01-09 13:19] LABS: Basophils Absolute Auto 0.01 K/uL (0.00-0.30); Basophils Percent Auto 0.2 % (0.0-3.0); Eosinophils Absolute Auto 0.06 K/uL (0.00-0.50); Eosinophils Percent Auto 1.1 % (0.0-7.0); Hematocrit 32.3 % (33.0-51.0); Hemoglobin* 10.5 gm/dL (12.0-16.0); Mean Corpuscular HGB Conc 33 gm/dL (32-36); Mean Corpuscular Hemoglobin 34 pg (26-34); Mean Corpuscular Volume 104 fL (80-100); Monocytes Percent Auto 21.5 % (0.0-11.0); Neutrophils Percent Auto 24.2 % (42.0-72.0); Platelet Count* 157 K/uL (140-440); RDW Coefficient of Variation % 14.5 % (11.5-15.5); Red Blood Count 3.11 m/uL (4.00-5.20); White Blood Count* 5.36 K/uL (4.50-11.00)
[2023-01-09 13:39] LABS: Albumin* 4.2 g/dL (3.3-5.0); Chloride* 103 mmol/L (96-114); Potassium* 4.6 mmol/L (3.6-5.1); Sodium* 134 mmol/L (135-149)
[2023-01-09 13:41] LABS: Creatinine* 1.2 mg/dL (0.5-1.5); Estimated Glomerular Filt Rate 44 ml/min
[2023-01-09 13:42] LABS: Alanine Aminotransferase* 22 U/L (4-35); Alkaline Phosphatase* 104 U/L (40-150); Aspartate Amino Transferase* 30 U/L (12-35); Bilirubin Total* 0.6 mg/dL (0.1-1.5); Blood Urea Nitrogen* 22 mg/dL (7-30); Calcium* 9.2 mg/dL (8.4-10.6); Carbon Dioxide* 25 mmol/L (20-32); Glucose* 133 mg/dL (60-115); Total Protein* 7.2 g/dL (6.0-8.3)
[2023-01-09 14:15] LABS: Slide Review Reflex Yes
[2023-01-09 14:23] LABS: Slide Review Acceptable Review (Acceptable)
--- NOTE | 2023-01-09 14:47 | ONC.NURNOTE ---
Teaching for new start Calirmae with daughter Margie reviewed possible side effects info given for high risk diarrhea management- discussed option of dietitian referral if needed, reviewed diarrhea tracker discussed after hours managment if needed, watching for fever reviewed safe handling and disposal reviewed contents of patient education binder reviewed possible side effects of calquence discussed administration follow up appts made and weekly lab draw scheduled
--- NOTE | 2023-01-09 14:53 | ONC.NURNOTE ---
PSDS =2 no listed concerns
--- NOTE | 2023-01-09 15:10 | ONC.NURNOTE ---
EKG done in clinics- and required review by Dr Ramos before Noelle could be discharged
--- NOTE | 2023-01-16 14:39 | ONC.NURNOTE ---
Follow up of new start Calquence taking as prescribed reports slight intermittant head ache for first 2 days watching her diet, no diarrhea started on Sunday01/14/23
--- NOTE | 2023-01-18 16:07 | ONC.NURNOTE ---
Reports doing very well since starting acalbrutamide visable improvement in size in cervical and axillary lymph nodes
[2023-01-22 09:59] LABS: Albumin* 4.3 g/dL (3.3-5.0); Chloride* 101 mmol/L (96-114)
[2023-01-22 10:00] LABS: Potassium* 4.6 mmol/L (3.6-5.1); Sodium* 130 mmol/L (135-149)
[2023-01-22 10:02] LABS: Alkaline Phosphatase* 87 U/L (40-150); Aspartate Amino Transferase* 33 U/L (12-35); Bilirubin Total* 0.5 mg/dL (0.1-1.5); Blood Urea Nitrogen* 24 mg/dL (7-30); Carbon Dioxide* 24 mmol/L (20-32); Creatinine* 0.9 mg/dL (0.5-1.5); Estimated Glomerular Filt Rate 62 ml/min; Total Protein* 7.2 g/dL (6.0-8.3)
[2023-01-22 10:03] LABS: Alanine Aminotransferase* 30 U/L (4-35); Calcium* 8.5 mg/dL (8.4-10.6); Glucose* 83 mg/dL (60-115)
[2023-01-22 10:13] LABS: Basophils Absolute Auto 0.01 K/uL (0.00-0.30); Basophils Percent Auto 0.1 % (0.0-3.0); Eosinophils Absolute Auto 0.04 K/uL (0.00-0.50); Eosinophils Percent Auto 0.5 % (0.0-7.0); Hematocrit 32.2 % (33.0-51.0); Hemoglobin* 10.5 gm/dL (12.0-16.0); Lymphocytes Percent Auto 65.6 % (20-44); Mean Corpuscular HGB Conc 33 gm/dL (32-36); Mean Corpuscular Hemoglobin 34 pg (26-34); Mean Corpuscular Volume 104 fL (80-100); Monocytes Percent Auto 21.2 % (0.0-11.0); Neutrophils Percent Auto 12.6 % (42.0-72.0); Platelet Count* 138 K/uL (140-440); RDW Coefficient of Variation % 13.8 % (11.5-15.5); White Blood Count* 8.51 K/uL (4.50-11.00)
[2023-01-22 10:14] LABS: Slide Review Reflex No
--- NOTE | 2023-01-23 15:07 | ONC.NURNOTE ---
Addendum entered by Melissa Mayers RN 01/30/23 13:39: Labs reviewed with Noelle -ANC- watch for infection, and use good hygiene with hand washing, staying hydrated, and will need to be seen if fever over 100.[address] Barreto is following her sodium and will contact here about her potassium lab and Dr Ramos next week Original Note: lab results noted Noelle will need to follow up with PCP about her hyponatremia message left on voicemail to call
[2023-01-29 09:56] LABS: Albumin* 4.2 g/dL (3.3-5.0); Chloride* 98 mmol/L (96-114); Potassium* 5.2 mmol/L (3.6-5.1); Sodium* 130 mmol/L (135-149)
[2023-01-29 09:58] LABS: Creatinine* 0.9 mg/dL (0.5-1.5); Estimated Glomerular Filt Rate 62 ml/min
[2023-01-29 09:59] LABS: Alanine Aminotransferase* 32 U/L (4-35); Alkaline Phosphatase* 90 U/L (40-150); Aspartate Amino Transferase* 30 U/L (12-35); Bilirubin Total* 0.6 mg/dL (0.1-1.5); Blood Urea Nitrogen* 18 mg/dL (7-30); Carbon Dioxide* 27 mmol/L (20-32); Glucose* 103 mg/dL (60-115); Total Protein* 7.2 g/dL (6.0-8.3)
[2023-01-29 11:00] LABS: Basophils Percent Auto 0.2 % (0.0-3.0); Eosinophils Percent Auto 0.7 % (0.0-7.0); Hematocrit 30.9 % (33.0-51.0); Hemoglobin* 10.1 gm/dL (12.0-16.0); Immature Granulocytes Pct Auto 0.5 %; Lymphocytes Percent Auto 77.6 % (20-44); Mean Corpuscular HGB Conc 33 gm/dL (32-36); Mean Corpuscular Hemoglobin 34 pg (26-34); Mean Corpuscular Volume 104 fL (80-100); Platelet Count* 162 K/uL (140-440); RDW Coefficient of Variation % 13.5 % (11.5-15.5); Red Blood Count 2.97 m/uL (4.00-5.20); White Blood Count* 4.02 K/uL (4.50-11.00)
[2023-01-29 11:01] LABS: Slide Review Reflex No
[2023-02-05 09:54] LABS: Eosinophils Percent Auto 0.8 % (0.0-7.0); Hematocrit 28.3 % (33.0-51.0); Hemoglobin* 9.2 gm/dL (12.0-16.0); Lymphocytes Percent Auto 72.6 % (20-44); Mean Corpuscular HGB Conc 33 gm/dL (32-36); Mean Corpuscular Hemoglobin 34 pg (26-34); Mean Corpuscular Volume 104 fL (80-100); Monocytes Percent Auto 0.8 % (0.0-11.0); Neutrophils Percent Auto 25.8 % (42.0-72.0); Platelet Count* 132 K/uL (140-440); RDW Coefficient of Variation % 14.1 % (11.5-15.5); Red Blood Count 2.72 m/uL (4.00-5.20); White Blood Count* 2.41 K/uL (4.50-11.00)
[2023-02-05 10:27] LABS: Slide Review Reflex No
[2023-02-05 10:50] LABS: Chloride* 99 mmol/L (96-114)
[2023-02-05 10:51] LABS: Potassium* 4.6 mmol/L (3.6-5.1); Sodium* 132 mmol/L (135-149)
[2023-02-05 10:53] LABS: Aspartate Amino Transferase* 29 U/L (12-35); Bilirubin Total* 0.5 mg/dL (0.1-1.5); Blood Urea Nitrogen* 18 mg/dL (7-30); Carbon Dioxide* 23 mmol/L (20-32); Creatinine* 0.9 mg/dL (0.5-1.5); Estimated Glomerular Filt Rate 62 ml/min; Total Protein* 6.6 g/dL (6.0-8.3)
[2023-02-05 10:54] LABS: Alanine Aminotransferase* 35 U/L (4-35); Alkaline Phosphatase* 93 U/L (40-150); Calcium* 8.7 mg/dL (8.4-10.6); Glucose* 110 mg/dL (60-115)
--- NOTE | 2023-02-06 12:12 | ONC.NURNOTE ---
dose change noted for acalabutinb- [facility]
--- NOTE | 2023-02-12 15:00 | ONC.NURNOTE ---
Noelle restarted her Calquence today, one tab daily due for repeat lab next week
[2023-02-19 09:46] LABS: Basophils Percent Auto 0.3 % (0.0-3.0); Eosinophils Percent Auto 0.8 % (0.0-7.0); Hematocrit 32.2 % (33.0-51.0); Hemoglobin* 10.3 gm/dL (12.0-16.0); Lymphocytes Percent Auto 75.4 % (20-44); Mean Corpuscular HGB Conc 32 gm/dL (32-36); Mean Corpuscular Hemoglobin 34 pg (26-34); Mean Corpuscular Volume 106 fL (80-100); Monocytes Percent Auto 3.7 % (0.0-11.0); Neutrophils Percent Auto 19.8 % (42.0-72.0); Platelet Count* 137 K/uL (140-440); RDW Coefficient of Variation % 14.7 % (11.5-15.5); Red Blood Count 3.04 m/uL (4.00-5.20); White Blood Count* 3.82 K/uL (4.50-11.00)
[2023-02-19 10:01] LABS: Albumin* 4.4 g/dL (3.3-5.0); Chloride* 97 mmol/L (96-114); Sodium* 133 mmol/L (135-149)
[2023-02-19 10:02] LABS: Potassium* 4.5 mmol/L (3.6-5.1)
[2023-02-19 10:04] LABS: Alanine Aminotransferase* 35 U/L (4-35); Alkaline Phosphatase* 130 U/L (40-150); Aspartate Amino Transferase* 25 U/L (12-35); Bilirubin Total* 0.5 mg/dL (0.1-1.5); Blood Urea Nitrogen* 20 mg/dL (7-30); Carbon Dioxide* 27 mmol/L (20-32); Creatinine* 0.8 mg/dL (0.5-1.5); Estimated Glomerular Filt Rate 71 ml/min; Glucose* 95 mg/dL (60-115); Total Protein* 7.4 g/dL (6.0-8.3)
[2023-02-19 10:05] LABS: Calcium* 9.1 mg/dL (8.4-10.6)
[2023-02-19 10:08] LABS: Slide Review Reflex Yes
[2023-02-19 10:10] LABS: Slide Review Acceptable Review (Acceptable)
[2023-02-28 14:05] LABS: Basophils Percent Auto 0.3 % (0.0-3.0); Eosinophils Percent Auto 0.5 % (0.0-7.0); Hematocrit 33.2 % (33.0-51.0); Hemoglobin* 10.9 gm/dL (12.0-16.0); Lymphocytes Percent Auto 72.3 % (20-44); Mean Corpuscular HGB Conc 33 gm/dL (32-36); Mean Corpuscular Hemoglobin 34 pg (26-34); Mean Corpuscular Volume 104 fL (80-100); Monocytes Percent Auto 1.5 % (0.0-11.0); Neutrophils Percent Auto 25.4 % (42.0-72.0); Platelet Count* 199 K/uL (140-440); RDW Coefficient of Variation % 14.1 % (11.5-15.5); Red Blood Count 3.19 m/uL (4.00-5.20)
[2023-02-28 14:08] LABS: Slide Review Reflex No
[2023-02-28 14:21] LABS: Albumin* 4.4 g/dL (3.3-5.0); Chloride* 97 mmol/L (96-114); Potassium* 4.5 mmol/L (3.6-5.1); Sodium* 134 mmol/L (135-149)
[2023-02-28 14:23] LABS: Aspartate Amino Transferase* 22 U/L (12-35); Bilirubin Total* 0.5 mg/dL (0.1-1.5); Carbon Dioxide* 27 mmol/L (20-32); Estimated Glomerular Filt Rate 55 ml/min; Total Protein* 7.2 g/dL (6.0-8.3)
[2023-02-28 14:24] LABS: Alanine Aminotransferase* 25 U/L (4-35); Alkaline Phosphatase* 112 U/L (40-150); Blood Urea Nitrogen* 20 mg/dL (7-30); Calcium* 9.2 mg/dL (8.4-10.6); Glucose* 118 mg/dL (60-115)
[2023-03-12 10:25] LABS: Basophils Percent Auto 0.3 % (0.0-3.0); Eosinophils Percent Auto 0.6 % (0.0-7.0); Hematocrit 37.9 % (33.0-51.0); Lymphocytes Percent Auto 62.2 % (20-44); Mean Corpuscular HGB Conc 32 gm/dL (32-36); Mean Corpuscular Hemoglobin 33 pg (26-34); Mean Corpuscular Volume 103 fL (80-100); Neutrophils Percent Auto 34.9 % (42.0-72.0); Platelet Count* 132 K/uL (140-440); RDW Coefficient of Variation % 13.6 % (11.5-15.5); Red Blood Count 3.68 m/uL (4.00-5.20); White Blood Count* 3.47 K/uL (4.50-11.00)
[2023-03-12 10:29] LABS: Slide Review Reflex No
[2023-03-12 10:38] LABS: Albumin* 4.8 g/dL (3.3-5.0); Chloride* 99 mmol/L (96-114); Sodium* 135 mmol/L (135-149)
[2023-03-12 10:39] LABS: Potassium* 4.3 mmol/L (3.6-5.1)
[2023-03-12 10:41] LABS: Alanine Aminotransferase* 23 U/L (4-35); Alkaline Phosphatase* 88 U/L (40-150); Aspartate Amino Transferase* 26 U/L (12-35); Bilirubin Total* 0.7 mg/dL (0.1-1.5); Blood Urea Nitrogen* 20 mg/dL (7-30); Carbon Dioxide* 28 mmol/L (20-32); Creatinine* 0.8 mg/dL (0.5-1.5); Estimated Glomerular Filt Rate 71 ml/min; Glucose* 74 mg/dL (60-115); Total Protein* 8.2 g/dL (6.0-8.3)
[2023-03-12 10:42] LABS: Calcium* 9.6 mg/dL (8.4-10.6)
[2023-04-09 10:42] LABS: Basophils Percent Auto 0.3 % (0.0-3.0); Eosinophils Percent Auto 0.8 % (0.0-7.0); Hematocrit 37.6 % (33.0-51.0); Hemoglobin* 12.3 gm/dL (12.0-16.0); Immature Granulocytes Pct Auto 0.3 %; Mean Corpuscular HGB Conc 33 gm/dL (32-36); Mean Corpuscular Hemoglobin 32 pg (26-34); Mean Corpuscular Volume 98 fL (80-100); Monocytes Percent Auto 4.8 % (0.0-11.0); Neutrophils Percent Auto 43.8 % (42.0-72.0); Platelet Count* 174 K/uL (140-440); RDW Coefficient of Variation % 13.1 % (11.5-15.5); Red Blood Count 3.84 m/uL (4.00-5.20)
[2023-04-09 10:47] LABS: Slide Review Reflex No
[2023-04-09 10:49] LABS: Albumin* 4.5 g/dL (3.3-5.0); Chloride* 95 mmol/L (96-114); Potassium* 4.1 mmol/L (3.6-5.1); Sodium* 131 mmol/L (135-149)
[2023-04-09 10:51] LABS: Bilirubin Total* 0.8 mg/dL (0.1-1.5); Carbon Dioxide* 28 mmol/L (20-32); Creatinine* 0.8 mg/dL (0.5-1.5); Estimated Glomerular Filt Rate 71 ml/min
[2023-04-09 10:52] LABS: Alanine Aminotransferase* 27 U/L (4-35); Alkaline Phosphatase* 91 U/L (40-150); Aspartate Amino Transferase* 29 U/L (12-35); Blood Urea Nitrogen* 18 mg/dL (7-30); Calcium* 9.6 mg/dL (8.4-10.6); Glucose* 81 mg/dL (60-115); Lactate Dehydrogenase* 173 U/L (120-246)
[2023-05-07 12:30] LABS: Basophils Absolute Auto 0.01 K/uL (0.00-0.30); Basophils Percent Auto 0.2 % (0.0-3.0); Eosinophils Absolute Auto 0.02 K/uL (0.00-0.50); Eosinophils Percent Auto 0.4 % (0.0-7.0); Hematocrit 38.6 % (33.0-51.0); Hemoglobin* 12.8 gm/dL (12.0-16.0); Lymphocytes Percent Auto 50.5 % (20-44); Mean Corpuscular HGB Conc 33 gm/dL (32-36); Mean Corpuscular Hemoglobin 32 pg (26-34); Mean Corpuscular Volume 97 fL (80-100); Monocytes Percent Auto 4.8 % (0.0-11.0); Neutrophils Absolute Auto 2.38 K/uL (1.7-7.0); Neutrophils Percent Auto 44.1 % (42.0-72.0); Platelet Count* 177 K/uL (140-440); RDW Coefficient of Variation % 13.2 % (11.5-15.5); Red Blood Count 3.99 m/uL (4.00-5.20); White Blood Count* 5.39 K/uL (4.50-11.00)
[2023-05-07 12:34] LABS: Slide Review Reflex No
[2023-05-07 12:43] LABS: Albumin* 4.6 g/dL (3.3-5.0); Chloride* 99 mmol/L (96-114); Potassium* 4.3 mmol/L (3.6-5.1); Sodium* 132 mmol/L (135-149)
[2023-05-07 12:45] LABS: Aspartate Amino Transferase* 32 U/L (12-35); Bilirubin Total* 0.8 mg/dL (0.1-1.5); Creatinine* 0.8 mg/dL (0.5-1.5); Estimated Glomerular Filt Rate 71 ml/min
[2023-05-07 12:46] LABS: Alanine Aminotransferase* 28 U/L (4-35); Alkaline Phosphatase* 101 U/L (40-150); Blood Urea Nitrogen* 20 mg/dL (7-30); Calcium* 9.3 mg/dL (8.4-10.6); Carbon Dioxide* 24 mmol/L (20-32); Glucose* 88 mg/dL (60-115); Lactate Dehydrogenase* 186 U/L (120-246); Total Protein* 7.7 g/dL (6.0-8.3)
== END 2023-06-05 23:59 | disposition home or self-care (01) ==
LOC: CCIC 12:15
PROVIDERS: Clinical Nurse Specialist; Internal Medicine Hematology & Oncology; Nurse Practitioner Family; PCP Internal Medicine; Referring Provider Internal Medicine; Visit Provider Internal Medicine Hematology & Oncology
DX: C91.10 Chronic lymphocytic leukemia of B-cell type not having achieved remission (principal)
CPT/HCPCS: 36415; 80053; 82565; 83615; 85025; 99211; 99212; 99213; 99214; 99215

== ENCOUNTER 2023-10-17 13:15 | Outpatient (RCR) | payer MEDICARE, BC, SELFPAY ==
[2023-06-06 13:43] LABS: Basophils Percent Auto 0.3 % (0.0-3.0); Hematocrit 38.3 % (33.0-51.0); Hemoglobin* 12.6 gm/dL (12.0-16.0); Lymphocytes Percent Auto 42.3 % (20-44); Mean Corpuscular HGB Conc 33 gm/dL (32-36); Mean Corpuscular Hemoglobin 32 pg (26-34); Mean Corpuscular Volume 97 fL (80-100); Monocytes Percent Auto 4.8 % (0.0-11.0); Neutrophils Percent Auto 51.6 % (42.0-72.0); Platelet Count* 180 K/uL (140-440); RDW Coefficient of Variation % 13.4 % (11.5-15.5); Red Blood Count 3.94 m/uL (4.00-5.20); White Blood Count* 3.97 K/uL (4.50-11.00)
[2023-06-06 13:57] LABS: Albumin* 4.2 g/dL (3.3-5.0); Chloride* 98 mmol/L (96-114); Sodium* 131 mmol/L (135-149)
[2023-06-06 13:58] LABS: Potassium* 4.5 mmol/L (3.6-5.1); Slide Review Reflex No
[2023-06-06 14:00] LABS: Alkaline Phosphatase* 117 U/L (40-150); Anion Gap 8 mEq/L (7-15); Aspartate Amino Transferase* 33 U/L (12-35); Bilirubin Total* 0.5 mg/dL (0.1-1.5); Blood Urea Nitrogen* 20 mg/dL (7-30); Carbon Dioxide* 25 mmol/L (20-32); Creatinine* 0.9 mg/dL (0.5-1.5); Estimated Glomerular Filt Rate 62 ml/min; Lactate Dehydrogenase* 197 U/L (120-246); Total Protein* 7.5 g/dL (6.0-8.3)
[2023-06-06 14:01] LABS: Alanine Aminotransferase* 32 U/L (4-35); Calcium* 9.4 mg/dL (8.4-10.6); Glucose* 166 mg/dL (60-115)
[2023-07-04 08:29] LABS: Basophils Percent Auto 0.2 % (0.0-3.0); Eosinophils Percent Auto 0.9 % (0.0-7.0); Hematocrit 40.9 % (33.0-51.0); Hemoglobin* 13.7 gm/dL (12.0-16.0); Lymphocytes Percent Auto 57.6 % (20-44); Mean Corpuscular HGB Conc 34 gm/dL (32-36); Mean Corpuscular Hemoglobin 32 pg (26-34); Mean Corpuscular Volume 96 fL (80-100); Monocytes Percent Auto 3.7 % (0.0-11.0); Neutrophils Percent Auto 37.6 % (42.0-72.0); Platelet Count* 185 K/uL (140-440); RDW Coefficient of Variation % 13.2 % (11.5-15.5); Red Blood Count 4.28 m/uL (4.00-5.20); White Blood Count* 4.29 K/uL (4.50-11.00)
[2023-07-04 08:31] LABS: Slide Review Reflex No
[2023-07-04 08:53] LABS: Albumin* 4.6 g/dL (3.3-5.0); Chloride* 102 mmol/L (96-114); Potassium* 4.2 mmol/L (3.6-5.1); Sodium* 134 mmol/L (135-149)
[2023-07-04 08:55] LABS: Bilirubin Total* 0.9 mg/dL (0.1-1.5); Cholesterol* 223 mg/dL (90-199); Creatinine* 0.8 mg/dL (0.5-1.5); Estimated Glomerular Filt Rate 71 ml/min; HDL Cholesterol* 84 mg/dL (>=50); LDL Cholesterol Calculated 102 mg/dL (<100); Triglycerides* 186 mg/dL (40-149)
[2023-07-04 08:56] LABS: Alanine Aminotransferase* 22 U/L (4-35); Alkaline Phosphatase* 98 U/L (40-150); Anion Gap 7 mEq/L (7-15); Aspartate Amino Transferase* 30 U/L (12-35); Blood Urea Nitrogen* 18 mg/dL (7-30); Carbon Dioxide* 25 mmol/L (20-32); Glucose* 87 mg/dL (60-115); Lactate Dehydrogenase* 187 U/L (120-246)
[2023-07-04 08:57] LABS: Calcium* 9.4 mg/dL (8.4-10.6)
--- NOTE | 2023-07-04 14:09 | ONC.NURNOTE ---
Lab results reviewed by Dr Ramos and called to Noelle as stable confirmed dosing of acalbrutinib next appt for MD and lab were moved to 08/15 due to provider schedule change due to EKG before next appt Called [place] [facility] [place] set up appt for EKG and Dr Barreto with in the next month Noelle aware
--- NOTE | 2023-07-19 10:45 | ONC.NURNOTE ---
KORY received from [facility] and will be forwarded for Dr Ramos to review reported as stable by Dr Barreto
[2023-08-15 14:15] LABS: Basophils Absolute Auto 0.01 K/uL (0.00-0.30); Basophils Percent Auto 0.2 % (0.0-3.0); Eosinophils Absolute Auto 0.02 K/uL (0.00-0.50); Eosinophils Percent Auto 0.4 % (0.0-7.0); Hematocrit 38.7 % (33.0-51.0); Hemoglobin* 12.8 gm/dL (12.0-16.0); Mean Corpuscular HGB Conc 33 gm/dL (32-36); Mean Corpuscular Hemoglobin 32 pg (26-34); Mean Corpuscular Volume 98 fL (80-100); Monocytes Percent Auto 3.8 % (0.0-11.0); Neutrophils Percent Auto 40.6 % (42.0-72.0); Platelet Count* 152 K/uL (140-440); RDW Coefficient of Variation % 12.8 % (11.5-15.5); Red Blood Count 3.96 m/uL (4.00-5.20); White Blood Count* 4.71 K/uL (4.50-11.00)
[2023-08-15 14:20] LABS: Slide Review Reflex No
[2023-08-15 14:34] LABS: Albumin* 4.3 g/dL (3.3-5.0); Chloride* 101 mmol/L (96-114)
[2023-08-15 14:35] LABS: Potassium* 4.2 mmol/L (3.6-5.1); Sodium* 132 mmol/L (135-149)
[2023-08-15 14:37] LABS: Alkaline Phosphatase* 102 U/L (40-150); Anion Gap 6 mEq/L (7-15); Aspartate Amino Transferase* 29 U/L (12-35); Bilirubin Total* 0.6 mg/dL (0.1-1.5); Blood Urea Nitrogen* 19 mg/dL (7-30); Carbon Dioxide* 25 mmol/L (20-32); Creatinine* 0.8 mg/dL (0.5-1.5); Estimated Glomerular Filt Rate 71 ml/min; Lactate Dehydrogenase* 180 U/L (120-246); Total Protein* 7.4 g/dL (6.0-8.3)
[2023-08-15 14:38] LABS: Alanine Aminotransferase* 25 U/L (4-35); Calcium* 9.3 mg/dL (8.4-10.6); Glucose* 123 mg/dL (60-115)
--- NOTE | 2023-08-30 14:22 | ONC.NURNOTE ---
Addendum entered and electronically signed by Nat Gaitan APRN 09/06/23 17:27: EKG will be completed in [facility]. Original Note: EKG orders faxed to Clinics - due in October prior to 10/17/appt message also sent via internal messaging to Dr Barreto/ROBIN Drake is aware
--- NOTE | 2023-10-05 13:10 | ONC.NURNOTE ---
Re: EKG- none needed at this time annual only- per Dr Ramos patient called with an update- message left on VM to call the [facility]
[2023-10-17 14:05] LABS: Basophils Absolute Auto 0.01 K/uL (0.00-0.30); Basophils Percent Auto 0.2 % (0.0-3.0); Eosinophils Absolute Auto 0.05 K/uL (0.00-0.50); Hematocrit 41.6 % (33.0-51.0); Hemoglobin* 13.6 gm/dL (12.0-16.0); Lymphocytes Absolute Auto 2.05 K/uL (0.90-2.90); Mean Corpuscular HGB Conc 33 gm/dL (32-36); Mean Corpuscular Hemoglobin 32 pg (26-34); Mean Corpuscular Volume 99 fL (80-100); Neutrophils Absolute Auto 2.42 K/uL (1.7-7.0); Neutrophils Percent Auto 50.8 % (42.0-72.0); Platelet Count* 182 K/uL (140-440); RDW Coefficient of Variation % 12.3 % (11.5-15.5); Red Blood Count 4.21 m/uL (4.00-5.20); White Blood Count* 4.77 K/uL (4.50-11.00)
[2023-10-17 14:06] LABS: Albumin* 4.5 g/dL (3.3-5.0); Chloride* 99 mmol/L (96-114)
[2023-10-17 14:07] LABS: Sodium* 134 mmol/L (135-149)
[2023-10-17 14:09] LABS: Alkaline Phosphatase* 106 U/L (40-150); Anion Gap 10 mEq/L (7-15); Aspartate Amino Transferase* 30 U/L (12-35); Bilirubin Total* 0.6 mg/dL (0.1-1.5); Blood Urea Nitrogen* 22 mg/dL (7-30); Carbon Dioxide* 25 mmol/L (20-32); Creatinine* 0.8 mg/dL (0.5-1.5); Estimated Glomerular Filt Rate 71 ml/min; Lactate Dehydrogenase* 189 U/L (120-246); Total Protein* 7.7 g/dL (6.0-8.3)
[2023-10-17 14:10] LABS: Alanine Aminotransferase* 24 U/L (4-35); Calcium* 9.3 mg/dL (8.4-10.6); Glucose* 131 mg/dL (60-115)
[2023-10-17 14:11] LABS: Slide Review Reflex No
== END 2023-12-03 23:59 | disposition home or self-care (01) ==
LOC: CCIC 13:15
PROVIDERS: PCP Internal Medicine; Referring Provider Internal Medicine; Visit Provider Internal Medicine Hematology & Oncology
DX: C91.10 Chronic lymphocytic leukemia of B-cell type not having achieved remission (principal); R20.2 Paresthesia of skin
CPT/HCPCS: 36415; 80053; 80061; 83615; 85025; 99212; 99213; 99214; G0463

== ENCOUNTER 2024-02-27 08:04 | Outpatient (CLI) | payer MEDICARE, BC, SELFPAY ==
--- OUTSIDE RECORDS SUMMARY | 2024-02-28 10:26 | XMS_ITS ---
Author Organization [facility] Address [address] [place] [address] Care Team Providers Care Animal Attendant Name Role Phone Unavailable Unavailable Unavailable Surgery Details Not on file Complications Check Surgery Details section. Procedure Estimated Blood Loss Check Surgery Details section. Procedure Findings Check Surgery Details section. Procedure Specimens Taken Check Surgery Details section.
--- OUTSIDE RECORDS SUMMARY | 2024-02-28 10:26 | XMS_ITS | Referral Summary ---
Author Organization [facility] Address [address] [place] [address] Care Team Providers Care Manager New Product Name Role Phone Unavailable Primary Care Provider Unavailabl e Source Comments Patient records contain information from all sites at [facility]. For routine questions regarding patient records, call [phone] during business hours, M-F 8:00 AM - 5:00 PM Central Time. Record requests for emergency care only can be directed to [phone] at any time.[facility] Allergies Active Allergy Reactions Criticality Noted Date Comments Diltiazem Edema (Reselect Reaction) High 12/10/2020 Medications Medication Sig Dispensed Refills Start Date End Date Status acetaminophen (TYLENOL) 500 mg tablet Take 500 mg by mouth every 6 (six) hours as needed. 08/04/2021 Active atorvastatin (LIPITOR) 20 mg tablet Take 0.5 tablets by mouth daily. 10 mg daily 07/08/2021 Active metoprolol succinate (TOPROL-XL) 25 mg 24 hr tablet Take 1 tablet by mouth daily. 04/08/2021 Active ucjarkgxtkyj-Bn-knci -minerals tablet Take 1 tablet by mouth daily. Active PSYLLIUM HUSK, BULK, MISC Take by mouth daily. Tablespoon daily Active valsartan (DIOVAN) 160 mg tablet Take 160 mg by mouth daily. Active vitamins A,C,S-mkom-qedist (PRESERVISION AREDS) 7,160 Units-113 mg-100 Units per tablet Take 1 tablet by mouth daily. Active hydroCHLOROthiazide (HYDRODIURIL) 25 mg tablet Take 25 mg by mouth daily. 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 No 07/17/2022 Within the last year, have y ou been humiliated or emotionally abused in other ways by your partner or ex-partner? No Within the last year, have y ou been kicked, hit, slapped, or otherwise physically hurt by your partner or ex-partner? No 07/17/2022 Within the last year, have y ou been raped or forced to have any kind of sexual activity by your partner or ex-partner? No 07/17/2022 Social Connection and Isolat ion Panel [NHANES] Answer Date Recorded In a typical week, how many times do you talk on the phone with family, friends, or neighbors? More than three times a week 07/17/2022 How often do you get togethe r with friends or relatives? More than three times a week 07/17/2022 How often do you attend chur or worship services? More than 4 times per year 07/17/2022 Do you belong to any clubs o r organizations such as quaker groups, unions, fraternal or athletic groups, or school groups? Yes 07/17/2022 How often do you attend meet ings of the clubs or organizations you belong to? More than 4 times per year 07/17/2022 Are you , , di vorced, , never , or living with a partner? Living with partner 07/17/2022 AUDIT-C Answer Date Recorded Q1: How often do you have a drink containing alc ohol? Never 07/17/2022 Average Number of Drinks Not on file 022 Frequency of Binge Drinking Not on file 07/01 [facility] [place] of Occupat ional Health - Occupational Stress Questionnaire Answer Date Recorded Do you feel stress - tense, restless, nervous, or anxious, or unable to sleep at night because your mind is troubled all the time - these days? To some extent 07/17/2022 Exercise Vital Sign Answer Date Recorde d On average, how many days pe r week do you engage in moderate to strenuous exercise (like a brisk walk)? 7 days 07/17/2022 On average, how many minutes do you engage in exercise at this level? 40 min 07/17/2022 Hunger Vital Sign Answer Date Recorded Within the past 12 months, y ou worried that your food would run out before you got the money to buy more. Never true 07/17/20 Within the past 12 months, t he food you bought just didn't last and you didn't have money to get more. Never true 07/17/2022 PRAPARE - Transportation Answer Date Re corded In the past 12 months, has l ack of transportation kept you from medical appointments or from getting medications? No 07/01 In the past 12 months, has l ack of transportation kept you from meetings, work, or from getting things needed for daily living? No 07/17/2022 Housing Stability Vital Sign Answer Edd e Recorded In the last 12 months, was t here a time when you were not able to pay the mortgage or rent on time? No 07/17/2022 In the last 12 months, how many places have you lived? 2 07/17/2022 In the last 12 months, was t here a time when you did not have a steady place to sleep or slept in a long term (including now)? No 07/17/2022 Nutrition Answer Date Recorded Nutrition: EVOO Fat Source No 07/17 On average, how many serving s of fruits and vegetables do you eat per day (serving size is equal to 1 cup or approximately the size of a tennis ball)? 4-5 07/17/2022 Dental Answer Date Recorded Dental: Regular Dentist Yes 07/17/20 Employment Answer Date Recorded Employment status Retired 07/17/2022 Education Answer Date Recorded What is the highest level of school you have completed or the highest degree you have received? Master's degree (e.g., MA, MS, Lanny, MEd, REFLESHER, LIA) 07/17/2022 Sex and Gender Information Value Date Recorded Sex Assigned at Female 07/17/2022 7:46 AM CDT Gender Identity Female 07/17/2022 7:46 AM CDT Sexual Orientation Straight 07/17/2022 7: 46 AM CDT Plan of Treatment Not on file
--- OUTSIDE RECORDS SUMMARY | 2024-02-28 10:26 | XMS_ITS | Clinical Summary ---
Author Organization [facility] Address [address] [place] [address] Care Team Providers Care Song Writer Name Role Phone Unavailable Primary Care Provider Unavailabl e Source Comments Patient records contain information from all sites at [facility]. For routine questions regarding patient records, call [phone] during business hours, M-F 8:00 AM - 5:00 PM Central Time. Record requests for emergency care only can be directed to [phone] at any time.[facility] Allergies Active Allergy Reactions Criticality Noted Date [...] 1 tablet by mouth daily. 04/08/2021 Active viuehyjaksgs-Rw-qyzz -minerals tablet Take 1 tablet by mouth daily. Active PSYLLIUM HUSK, BULK, MISC Take by mouth daily. Tablespoon daily Active valsartan (DIOVAN) 160 mg tablet Take 160 mg by mouth daily. Active vitamins A,C,Z-mdnt-bjbefr (PRESERVISION AREDS) 7,160 Units-113 mg-100 Units per [...] How often do you attend chur or episcopal services? More than 4 times per year 07/17/2022 Do you belong to any clubs o r organizations such as synagogue groups, unions, fraternal or athletic groups, or [...] of Binge Drinking Not on file 07/01 [facility] [place] of Occupat ional Health - Occupational Stress [...] place to sleep or slept in a mcc (including now)? No 07/17/2022 Nutrition Answer Date [...] Master's degree (e.g., MA, MS, Lanny, MEd, UTILITY PERSON, LIA) 07/17/2022 Sex and Gender Information Value Date Recorded Sex Assigned at Female 07/17/2022 7:46 AM CDT Gender Identity Female 07/17/2022 7:46 AM CDT Sexual Orientation Straight 07/17/2022 7: 46 AM CDT Plan of Treatment Health Maintenance Due Date Last Done Comments Creatinine Level (Kidney Fun ction Test) 1935 Potassium Level 1935 Sodium Level 1935 DTaP,Tdap,and Td Vaccines (1 - Tdap) 01/04/2005 01/03/2005, 09/13/1994 Zoster Vaccines (2 of 2) 02/05/2021 12/11/2020 Depression Screening (Annual PHQ-2) 10/01/2023 Fall Risk Screen (Annual) 10/01/2023 COVID-19 Vaccine (8 - 2022-2 4 season) 2024 11/06/2023, 03/15/2023, 07/27/2022, Additional history exists Pneumococcal vaccine (65+ years) Completed 11/08/2018, 09/03/2014, 06/25/1998 Influenza Vaccine Completed 07/24/2023, , 06/30/2021, Additional history exists
== END 2024-02-27 08:05 | disposition home or self-care (01) ==
LOC: NFLDREF 02-28 10:24
PROVIDERS: PCP Internal Medicine; Referring Provider Internal Medicine; Visit Provider Internal Medicine
DX: E78.5 Hyperlipidemia, unspecified (principal)
CPT/HCPCS: 80061

== ENCOUNTER 2024-04-29 12:23 | Outpatient (CLI) | payer MEDICARE, BC, SELFPAY ==
--- OUTSIDE RECORDS SUMMARY | 2024-04-29 12:26 | XMS_ITS | Referral Summary ---
Author Organization [facility] Address [address] [place] [address] Care Team Providers Care Accessories Repairer Name Role Phone Unavailable Primary Care Provider Unavailabl e Source Comments Patient records contain information from all sites at [facility]. For routine questions regarding patient records, call [phone] during business hours, M-F 8:00 AM - 5:00 PM Central Time. Record requests for emergency care only can be directed to [phone] at any time.[facility] Allergies Active Allergy Reactions Criticality Noted Date [...] 1 tablet by mouth daily. 04/08/2021 Active fdelhnjthxjr-Oq-fncr -minerals tablet Take 1 tablet by mouth daily. Active PSYLLIUM HUSK, BULK, MISC Take by mouth daily. Tablespoon daily Active valsartan (DIOVAN) 160 mg tablet Take 160 mg by mouth daily. Active vitamins A,C,W-gpih-gxgnre (PRESERVISION AREDS) 7,160 Units-113 mg-100 Units per [...] How often do you attend chur or lutheran services? More than 4 times per year 07/17/2022 Do you belong to any clubs o r organizations such as anabaptist groups, unions, fraternal or athletic groups, or [...] of Binge Drinking Not on file 07/01 [facility] [place] of Occupat ional Health - Occupational Stress [...] place to sleep or slept in a fci (including now)? No 07/17/2022 Nutrition Answer Date [...] Master's degree (e.g., MA, MS, Lanny, MEd, SENIOR CONSTRUCTION MANAGER, LIA) 07/17/2022 Sex and Gender Information Value Date Recorded Sex Assigned at Female 07/17/2022 7:46 AM CDT Gender Identity Female 07/17/2022 7:46 AM CDT Sexual Orientation Straight 07/17/2022 7: 46 AM CDT Plan of Treatment Not on file
--- OUTSIDE RECORDS SUMMARY | 2024-04-29 12:26 | XMS_ITS ---
Author Organization [facility] Address [address] [place] [address] Care Team Providers Care Aircraft Avionics Technician Name Role Phone Unavailable Unavailable Unavailable Surgery Details Not on file Complications Check Surgery Details section. Procedure Estimated Blood Loss Check Surgery Details section. Procedure Findings Check Surgery Details section. Procedure Specimens Taken Check Surgery Details section.
--- OUTSIDE RECORDS SUMMARY | 2024-04-29 12:26 | XMS_ITS | Clinical Summary ---
Author Organization [facility] Address [address] [place] [address] Care Team Providers Care Weight Shifter Name Role Phone Unavailable Primary Care Provider Unavailabl e Source Comments Patient records contain information from all sites at [facility]. For routine questions regarding patient records, call [phone] during business hours, M-F 8:00 AM - 5:00 PM Central Time. Record requests for emergency care only can be directed to [phone] at any time.[facility] Allergies Active Allergy Reactions Criticality Noted Date [...] 1 tablet by mouth daily. 04/08/2021 Active kvidflznqlra-Le-imhg -minerals tablet Take 1 tablet by mouth daily. Active PSYLLIUM HUSK, BULK, MISC Take by mouth daily. Tablespoon daily Active valsartan (DIOVAN) 160 mg tablet Take 160 mg by mouth daily. Active vitamins A,C,Z-tvto-runvmu (PRESERVISION AREDS) 7,160 Units-113 mg-100 Units per [...] How often do you attend chur or hindu services? More than 4 times per year 07/17/2022 Do you belong to any clubs o r organizations such as christian groups, unions, fraternal or athletic groups, or [...] of Binge Drinking Not on file 07/01 [facility] [place] of Occupat ional Health - Occupational Stress [...] place to sleep or slept in a halfway (including now)? No 07/17/2022 Nutrition Answer Date [...] Master's degree (e.g., MA, MS, Lanny, MEd, TISSUE INSERTER, LIA) 07/17/2022 Sex and Gender Information Value [...] 2024 11/06/2023, 03/15/2023, 07/27/2022, Additional history exists Influenza Vaccine (#1) 2024 , 07/03/2022, 06/30/2021, Additional history exists Pneumococcal vaccine (65+ years) Completed 11/08/2018, 09/03/2014, 06/25/1998
--- NOTE | 2024-04-29 13:00 | CRLHL7_ITS ---
For Patients: As a result of the Century Cures Act, medical imaging exams and procedure reports are released immediately into your electronic medical record. You may view this report before your referring provider. If you have questions, please contact your health care provider. INDICATION: Chronic lymphocytic leukemia of B-cell type; not having achieved remission. Comparison: CT chest, abdomen and pelvis with intravenous contrast 12/13/2022. TECHNIQUE: CT chest, abdomen and pelvis with intravenous contrast; coronal and sagittal reformats. FINDINGS: Increased interstitial markings in both lungs predominantly through the lung bases; relatively new compared to November 2022; it is possible this could represent evolving interstitial fibrosis; relatively poor inspiratory effort cannot be ruled out and follow-up high-resolution chest CT is suggested for further assessment. No abnormal intra pulmonary nodular densities are identified. Significant resolution of the lymphadenopathy in the lower neck and both axillae compared to the previous study. The largest lymph node in the left axilla measures 1.8 cm in short axis diameter; at the same level, it was measuring 4.3 cm on the previous study. Almost complete resolution of the lymphadenopathy in the right axilla compared to the previous study. Resolution of the mediastinal lymphadenopathy when compared to the previous study. No evidence of pleural effusion or chest wall pathology. Normal size cardiac silhouette without any pericardial effusion. No focal hepatic or splenic pathology. No evidence of splenomegaly. No focal hepatic pathology. No pancreatic pathology. The gallbladder is unremarkable. No adrenal pathology. A 1.3 cm cortical cyst upper pole left kidney. Significant resolution of the lymphadenopathy in the abdomen and pelvis when compared to the previous study. Residual left periaortic lymph node measuring 3.1 cm in short axis diameter; at this same level was measuring 6.6 cm on the previous study. Multiple other lymph node masses identified in the abdomen and pelvis still with significant resolution ;however still present. Diverticulosis sigmoid colon without any CT evidence of diverticulitis or abscess. No pneumoperitoneum or intestinal obstruction. IMPRESSION: 1. Even though evidence of significant resolution of the abdominopelvic lymphadenopathy, still very significant lymph nodes present consistent with the clinical impression of not achieving remission 2. Significant resolution of the lymphadenopathy in the axillae bilaterally. 3. Complete resolution of the mediastinal lymphadenopathy. 4. Increased interstitial markings both lungs; suggest obtaining high-resolution chest CT for further assessment. Please note that all CT scans at this facility use dose modulation, iterative reconstruction, and/or weight-based dosing when appropriate to reduce radiation dose to as low as reasonably achievable. Dictated by Dinesh Sands MD @ 05/02/2024 8:27:05 AM (Electronically Signed)
== END 2024-04-29 12:24 | disposition home or self-care (01) ==
LOC: CT 12:24
PROVIDERS: PCP Internal Medicine; Visit Provider Internal Medicine Hematology & Oncology
DX: C91.10 Chronic lymphocytic leukemia of B-cell type not having achieved remission (principal)
CPT/HCPCS: 71260; 74177; Q9967

== ENCOUNTER 2024-05-12 14:00 | Outpatient (RCR) | payer MEDICARE, BC, SELFPAY ==
[2024-01-14 13:21] LABS: Basophils Percent Auto 0.2 % (0.0-3.0); Eosinophils Percent Auto 0.9 % (0.0-7.0); Hematocrit 39.3 % (33.0-51.0); Hemoglobin* 13.1 gm/dL (12.0-16.0); Immature Granulocytes Pct Auto 0.2 %; Mean Corpuscular HGB Conc 33 gm/dL (32-36); Mean Corpuscular Hemoglobin 32 pg (26-34); Mean Corpuscular Volume 97 fL (80-100); Monocytes Percent Auto 4.7 % (0.0-11.0); Platelet Count* 179 K/uL (140-440); RDW Coefficient of Variation % 12.1 % (11.5-15.5); Red Blood Count 4.07 m/uL (4.00-5.20)
[2024-01-14 13:37] LABS: Albumin* 4.5 g/dL (3.3-5.0); Slide Review Reflex No
[2024-01-14 13:38] LABS: Chloride* 101 mmol/L (96-114); Potassium* 4.3 mmol/L (3.6-5.1); Sodium* 131 mmol/L (135-149)
[2024-01-14 13:40] LABS: Alkaline Phosphatase* 110 U/L (40-150); Anion Gap 4 mEq/L (7-15); Aspartate Amino Transferase* 37 U/L (12-35); Bilirubin Total* 0.7 mg/dL (0.1-1.5); Blood Urea Nitrogen* 18 mg/dL (7-30); Carbon Dioxide* 26 mmol/L (20-32); Creatinine* 0.9 mg/dL (0.5-1.5); Estimated Glomerular Filt Rate 61 ml/min; Lactate Dehydrogenase* 328 U/L (120-246); Total Protein* 7.8 g/dL (6.0-8.3)
[2024-01-14 13:41] LABS: Alanine Aminotransferase* 31 U/L (4-35); Calcium* 9.3 mg/dL (8.4-10.6); Glucose* 97 mg/dL (60-115)
[2024-02-04 13:54] LABS: Lactate Dehydrogenase* 302 U/L (120-246)
--- NOTE | 2024-02-06 13:45 | ONC.NURNOTE ---
LDH reviewed by Dr Ramos and called to Noelle improving but warrants continued monitoring repeat in 1 month- appt made for 03/03/24
[2024-02-27 11:45] LABS: Lactate Dehydrogenase* 294 U/L (120-246)
--- NOTE | 2024-03-03 15:34 | ONC.NURNOTE ---
LDH reviewed by Dr Ramos and message left on VM for Noelle No further action needed right now- next lab planned for 04/14/24 with MD visit patient should call back with any further concerns or questions
[2024-04-14 13:08] LABS: Basophils Absolute Auto 0.02 K/uL (0.00-0.30); Basophils Percent Auto 0.4 % (0.0-3.0); Eosinophils Absolute Auto 0.03 K/uL (0.00-0.50); Eosinophils Percent Auto 0.6 % (0.0-7.0); Hematocrit 40.1 % (33.0-51.0); Hemoglobin* 13.2 gm/dL (12.0-16.0); Immature Granulocytes Abs Auto 0.01 K/uL (0.00-0.30); Immature Granulocytes Pct Auto 0.2 %; Lymphocytes Absolute Auto 1.98 K/uL (0.90-2.90); Lymphocytes Percent Auto 36.9 % (20-44); Mean Corpuscular HGB Conc 33 gm/dL (32-36); Mean Corpuscular Hemoglobin 32 pg (26-34); Mean Corpuscular Volume 98 fL (80-100); Monocytes Percent Auto 3.7 % (0.0-11.0); Neutrophils Absolute Auto 3.12 K/uL (1.7-7.0); Neutrophils Percent Auto 58.2 % (42.0-72.0); Platelet Count* 193 K/uL (140-440); RDW Coefficient of Variation % 12.4 % (11.5-15.5); Red Blood Count 4.11 m/uL (4.00-5.20); White Blood Count* 5.36 K/uL (4.50-11.00)
[2024-04-14 13:13] LABS: Slide Review Reflex No
[2024-04-14 13:32] LABS: Chloride* 99 mmol/L (96-114)
[2024-04-14 13:33] LABS: Albumin* 4.6 g/dL (3.3-5.0); Potassium* 4.7 mmol/L (3.6-5.1); Sodium* 131 mmol/L (135-149)
[2024-04-14 13:35] LABS: Anion Gap 8 mEq/L (7-15); Bilirubin Total* 0.8 mg/dL (0.1-1.5); Carbon Dioxide* 24 mmol/L (20-32); Creatinine* 0.9 mg/dL (0.5-1.5); Estimated Glomerular Filt Rate 61 ml/min
[2024-04-14 13:36] LABS: Alanine Aminotransferase* 20 U/L (4-35); Alkaline Phosphatase* 102 U/L (40-150); Aspartate Amino Transferase* 26 U/L (12-35); Blood Urea Nitrogen* 18 mg/dL (7-30); Calcium* 9.3 mg/dL (8.4-10.6); Glucose* 135 mg/dL (60-115); Total Protein* 7.6 g/dL (6.0-8.3)
[2024-04-14 15:28] LABS: Lactate Dehydrogenase* 196 U/L (120-246)
--- NOTE | 2024-05-28 12:15 | ONC.NURNOTE ---
Message received from Daughter about dates of lab and EKG- appts made for 07/22- LM to confirm appt
--- NOTE | 2024-06-09 12:57 | PC.NURSE ---
Received a refill request from [facility] for Vitamin B12 tablets. RN called pt to ask if she needed a refill. Pt states that she is out but plans to buy Vitamin B12 over the counter this week and she will get a prescription refill when she is in seeing Dr. Sanchez on 07/30/2024. Updated [facility].
== END 2024-07-12 23:59 | disposition home or self-care (01) ==
LOC: CCIC 14:00
PROVIDERS: PCP Internal Medicine; Referring Provider Internal Medicine; Visit Provider Internal Medicine Hematology & Oncology
DX: C91.10 Chronic lymphocytic leukemia of B-cell type not having achieved remission (principal); R20.2 Paresthesia of skin
CPT/HCPCS: 36415; 80053; 83615; 85025; 99213; 99214; G0463

== ENCOUNTER 2025-01-12 13:45 | Outpatient (RCR) | payer MEDICARE, BC, SELFPAY ==
[2024-07-22 13:46] LABS: Basophils Percent Auto 0.3 % (0.0-3.0); Eosinophils Percent Auto 1.4 % (0.0-7.0); Hematocrit 39.8 % (33.0-51.0); Hemoglobin* 13.1 gm/dL (12.0-16.0); Immature Granulocytes Pct Auto 0.3 %; Lymphocytes Percent Auto 34.7 % (20-44); Mean Corpuscular HGB Conc 33 gm/dL (32-36); Mean Corpuscular Hemoglobin 32 pg (26-34); Mean Corpuscular Volume 98 fL (80-100); Monocytes Percent Auto 5.4 % (0.0-11.0); Neutrophils Percent Auto 57.9 % (42.0-72.0); Platelet Count* 153 K/uL (140-440); RDW Coefficient of Variation % 12.7 % (11.5-15.5); Red Blood Count 4.05 m/uL (4.00-5.20); Slide Review Reflex No; White Blood Count* 3.69 K/uL (4.50-11.00)
[2024-07-22 14:06] LABS: Albumin* 4.6 g/dL (3.3-5.0); Chloride* 97 mmol/L (96-114); Potassium* 4.1 mmol/L (3.6-5.1); Sodium* 130 mmol/L (135-149)
[2024-07-22 14:08] LABS: Anion Gap 8 mEq/L (7-15); Bilirubin Total* 0.8 mg/dL (0.1-1.5); Carbon Dioxide* 25 mmol/L (20-32); Creatinine* 0.9 mg/dL (0.5-1.5); Estimated Glomerular Filt Rate 61 ml/min
[2024-07-22 14:09] LABS: Alanine Aminotransferase* 19 U/L (4-35); Alkaline Phosphatase* 106 U/L (40-150); Aspartate Amino Transferase* 25 U/L (12-35); Blood Urea Nitrogen* 20 mg/dL (7-30); Calcium* 9.5 mg/dL (8.4-10.6); Glucose* 130 mg/dL (60-115); Lactate Dehydrogenase* 189 U/L (120-246); Total Protein* 7.6 g/dL (6.0-8.3)
--- NOTE | 2024-07-23 11:22 | ONC.NURNOTE ---
lab results called to Noelle reviewed potassium Noelle states this is a chronic problem that has been followed by PCP as well reports no concerns or changes at home with acalabrutinib appt next week with Dr Ramos
--- NOTE | 2024-07-29 15:35 | W.ED.EKGINT ---
EKG Interpretation EKG Data Attestation: I personally reviewed and interpreted this ECG as follows: Date of EKG Tracin07/22/24 EKG interpretation date: 07/29/24 Prior EKG tracings: available for review Interpretation: EKG from above date is here for interpretation, rhythm continues to be sinus, ventricular rate is 80, first-degree AV block is noted. Which is unchanged from previous. Left bundle branch block configuration persists, QRS is 148 milliseconds, QT is 418 QTC is 482 Assessment: Abnormal EKG, 1st degree AV block with left bundle-branch block , QT interval improved from 07/17/2023. QTC slightly prolonged since 07/17/2023 at 482 which is 18 milliseconds longer
[2024-09-11 13:34] LABS: Albumin* 4.5 g/dL (3.3-5.0); Chloride* 101 mmol/L (96-114); Sodium* 134 mmol/L (135-149)
[2024-09-11 13:35] LABS: Potassium* 4.1 mmol/L (3.6-5.1)
[2024-09-11 13:37] LABS: Alanine Aminotransferase* 24 U/L (4-35); Alkaline Phosphatase* 113 U/L (40-150); Anion Gap 9 mEq/L (7-15); Aspartate Amino Transferase* 24 U/L (12-35); Bilirubin Total* 0.5 mg/dL (0.1-1.5); Blood Urea Nitrogen* 21 mg/dL (7-30); Carbon Dioxide* 24 mmol/L (20-32); Creatinine* 0.8 mg/dL (0.5-1.5); Est. Creatinine Clearance* 34.32; Estimated Glomerular Filt Rate 70 ml/min; Glucose* 106 mg/dL (60-115); Lactate Dehydrogenase* 230 U/L (120-246); Total Protein* 7.5 g/dL (6.0-8.3)
[2024-09-11 13:38] LABS: Calcium* 9.5 mg/dL (8.4-10.6)
[2024-09-11 13:55] LABS: Basophils Absolute Auto 0.01 K/uL (0.00-0.30); Basophils Percent Auto 0.2 % (0.0-3.0); Eosinophils Absolute Auto 0.05 K/uL (0.00-0.50); Hematocrit 39.3 % (33.0-51.0); Hemoglobin* 12.8 gm/dL (12.0-16.0); Immature Granulocytes Abs Auto 0.01 K/uL (0.00-0.30); Immature Granulocytes Pct Auto 0.2 %; Lymphocytes Percent Auto 48.4 % (20-44); Mean Corpuscular HGB Conc 33 gm/dL (32-36); Mean Corpuscular Hemoglobin 32 pg (26-34); Mean Corpuscular Volume 99 fL (80-100); Monocytes Percent Auto 5.4 % (0.0-11.0); Neutrophils Absolute Auto 2.25 K/uL (1.7-7.0); Neutrophils Percent Auto 44.8 % (42.0-72.0); Platelet Count* 187 K/uL (140-440); Red Blood Count 3.99 m/uL (4.00-5.20); White Blood Count* 5.02 K/uL (4.50-11.00)
[2024-09-11 14:12] LABS: Slide Review Reflex No
--- NOTE | 2024-09-11 14:56 | ONC.NURNOTE ---
Lab results noted and called to Noelle- as stable next appts reviewed For Dr Ramos's review next week
[2024-10-27 14:02] LABS: Basophils Percent Auto 0.3 % (0.0-3.0); Eosinophils Percent Auto 0.9 % (0.0-7.0); Hematocrit 38.6 % (33.0-51.0); Hemoglobin* 12.8 gm/dL (12.0-16.0); Lymphocytes Percent Auto 31.7 % (20-44); Mean Corpuscular HGB Conc 33 gm/dL (32-36); Mean Corpuscular Hemoglobin 32 pg (26-34); Mean Corpuscular Volume 96 fL (80-100); Monocytes Percent Auto 5.9 % (0.0-11.0); Neutrophils Percent Auto 61.2 % (42.0-72.0); Platelet Count* 143 K/uL (140-440); RDW Coefficient of Variation % 12.9 % (11.5-15.5); Red Blood Count 4.01 m/uL (4.00-5.20); White Blood Count* 3.22 K/uL (4.50-11.00)
[2024-10-27 14:06] LABS: Albumin* 4.3 g/dL (3.3-5.0); Slide Review Reflex No
[2024-10-27 14:07] LABS: Chloride* 99 mmol/L (96-114); Potassium* 4.3 mmol/L (3.6-5.1); Sodium* 131 mmol/L (135-149)
[2024-10-27 14:09] LABS: Anion Gap 8 mEq/L (7-15); Aspartate Amino Transferase* 24 U/L (12-35); Bilirubin Total* 0.8 mg/dL (0.1-1.5); Carbon Dioxide* 24 mmol/L (20-32); Est. Creatinine Clearance* 34.32; Estimated Glomerular Filt Rate 54 ml/min; Total Protein* 7.1 g/dL (6.0-8.3)
[2024-10-27 14:10] LABS: Alanine Aminotransferase* 20 U/L (4-35); Alkaline Phosphatase* 98 U/L (40-150); Blood Urea Nitrogen* 18 mg/dL (7-30); Glucose* 105 mg/dL (60-115); Lactate Dehydrogenase* 190 U/L (120-246)
--- NOTE | 2024-11-27 15:50 | ONC.NURNOTE ---
Pt called today to let [facility] staff and Dr. Ramos know that pt is currently recovering from COVID, feeling better, still has some nasal congestion. Pt will also notify her primary care. Pt does not have any upcoming appts in the next couple weeks with Oncology.
[2025-01-12 14:09] LABS: Basophils Percent Auto 0.2 % (0.0-3.0); Eosinophils Percent Auto 0.9 % (0.0-7.0); Hematocrit 37.5 % (33.0-51.0); Hemoglobin* 12.5 gm/dL (12.0-16.0); Lymphocytes Percent Auto 26.6 % (20-44); Mean Corpuscular HGB Conc 33 gm/dL (32-36); Mean Corpuscular Hemoglobin 32 pg (26-34); Mean Corpuscular Volume 97 fL (80-100); Monocytes Percent Auto 4.1 % (0.0-11.0); Neutrophils Percent Auto 68.2 % (42.0-72.0); Platelet Count* 179 K/uL (140-440); Red Blood Count 3.86 m/uL (4.00-5.20); White Blood Count* 4.43 K/uL (4.50-11.00)
[2025-01-12 14:19] LABS: Slide Review Reflex No
[2025-01-12 14:31] LABS: Albumin* 4.5 g/dL (3.3-5.0); Chloride* 96 mmol/L (96-114); Potassium* 4.7 mmol/L (3.6-5.1); Sodium* 130 mmol/L (135-149)
[2025-01-12 14:33] LABS: Alanine Aminotransferase* 25 U/L (4-35); Anion Gap 7 mEq/L (7-15); Aspartate Amino Transferase* 43 U/L (12-35); Bilirubin Total* 0.9 mg/dL (0.1-1.5); Blood Urea Nitrogen* 20 mg/dL (7-30); Carbon Dioxide* 27 mmol/L (20-32); Creatinine* 0.9 mg/dL (0.5-1.5); Est. Creatinine Clearance* 34.32; Estimated Glomerular Filt Rate 61 ml/min; Total Protein* 7.6 g/dL (6.0-8.3)
[2025-01-12 14:34] LABS: Alkaline Phosphatase* 113 U/L (40-150); Calcium* 9.2 mg/dL (8.4-10.6); Glucose* 119 mg/dL (60-115)
[2025-01-12 15:00] LABS: Lactate Dehydrogenase* 206 U/L (120-246)
== END 2025-01-18 23:59 | disposition home or self-care (01) ==
LOC: CCIC 13:45
PROVIDERS: PCP Internal Medicine; Referring Provider Internal Medicine; Visit Provider Internal Medicine Hematology & Oncology
DX: C91.10 Chronic lymphocytic leukemia of B-cell type not having achieved remission (principal)
CPT/HCPCS: 36415; 80053; 83615; 85025; 93005; 93010; 99213; 99214; G0463

== ENCOUNTER 2025-05-08 09:00 | Outpatient (CLI) | payer MEDICARE, BC, SELFPAY | END 2025-05-08 09:01 | disposition home or self-care (01) | LOC: NFLDREF 05-13 13:21 | PROVIDERS: PCP Internal Medicine; Referring Provider Internal Medicine; Visit Provider Internal Medicine | DX: E78.5 Hyperlipidemia, unspecified (principal); I10 Essential (primary) hypertension | CPT/HCPCS: 80048; 80061 ==